=== PATIENT | male | born 1990 | race African-American/Black ===

== ENCOUNTER 2025-06-15 18:56 | Inpatient (IN) | payer OTHER, SELFPAY ==
--- NOTE | ~2025-06-15 | XR_ITS ---
EXAMINATION: XR HAND, LEFT CLINICAL INFORMATION: left wrist trauma/pain COMPARISON: None available. TECHNIQUE: PA, lateral, and oblique views of the left hand. FINDINGS: No fracture, dislocation, or suspicious bone lesion. Normal bone mineralization. Normal alignment. Joint spaces are preserved. No significant arthropathy. Soft tissues appear normal. XR/XR hand LT min 3V IMPRESSION: Normal left hand. Electronically signed by: Christopher Ceron MD 06/19/2025 02:12 PM EDT
[2025-06-15 19:25] VITALS: BP 120/80; PULSE 88; RESP 16; TEMP 36.4; O2SAT 99
--- NOTE | 2025-06-15 23:20 | PC.ADMIT ---
Addendum entered by More Fox RN 06/16/25 00:37: Correction: UTOX was positive for opiates, cocaine, fentanyl, and marijuana. Additionally, patient has a history of self harm and suicide attempts. He smokes 2 ppd, and vapes. Per [facility] paperwork, he is taking Suboxone 2-0.5 mg films. 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 His skin check was unremarkable. He has a history of anxiety, depression, and schizophrenia. He is allergic to tylenol. Per collateral, he has been off his psychiatric medications for around 5 months. He has become increasingly depressed, with passive SI per [facility], and he reports that he has been taking benzodiazepines and heroin to cope. While at [facility], he complained of AH of his father and grandmother's voices, stating it's going to be ok. He has no active SI at this time. His toxicology was positive for cocaine and fentanyl, but negative for benzodiazepines. He has been on suboxone in the past. He denied all psychiatric symptoms when assessed by this health underwriter; he is irritable due to fatigue. He retired to bed early this shift.
[2025-06-16 00:44] VITALS: BMI 25.1
--- NOTE | 2025-06-16 01:55 | PC.ADMIT ---
Addendum entered by More Fox RN 06/16/25 06:55: Patient has declined quitworks. 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 His skin check was reportedly remarkable for a burn on his left chest. Juan Manuel has a history of anxiety, depression, and schizophrenia. He has been off his medications for some months. He has had worsening depression as a result, and complained at [facility] that he was hearing his grandmother and father's voice stating It's going to be ok. He reports he has been taking benzodiazepines and heroin to cope; his UTOX was positive for cocaine, marijuana, opiates, and fentanyl. He is a two pack per day smoker, and vapes. The medical record from [facility] states that he has been on suboxone in the past. He has a history of suicide attempts and self harm, but there are no specifics as to method of attempt or self harm.
--- NOTE | 2025-06-16 09:23 | P.HPPS_ITS ---
HPI Date of Service: 06/16/25 Chief Complaint: Major depres, severe,recurrent, w/o psychotic feat Sources of Information: patient interviewed, chart reviewed and crisis/core team assessment reviewed HPI Subjective Notes: Strong Warning, Conditional Voluntary and 3 Day Narrative: Patient seen at 12:00 06/16 Patient is a 34-year-old male with history of MDD, anxiety, opiate and cocaine use disorder who presents for worsening depression, AH in the face of being off medications, relapse and triggering event which resulted him it not being allowed to talk to his children. Patient reports that he has been off his medications for about a year since he did not follow-up when they ran out. He has been depressed and anxious 4 months, however has remained sober on Sublocade. Sublocade ran out about 2 months ago at which time he relapsed and he regrets missing follow up. Patient reports that he has been abusing heroin and cocaine daily; denies any alcohol use. His depression has continually worsened saying he's not involved in anything, depressed, not wanting to do anything....I'm tired of 'everthing...tired of waking up...damn i got to do this whole day again... 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 Since then his depression has continued to worsen and his substance abuse increased. Patient started hearing helpful auditory hallucinations which remind him of his father and grandmother and say things to tried to lift [him]... And only occur when he is depressed. Patient would like to get back on antidepressant and remembers Wellbutrin being helpful; discussed risks/side effects. Wants to get back on Sublocade and agrees to start Suboxone now. Denies any history of manic type episodes Past Psychiatric History: Past psychiatric hospitalizations Past SI past med trials: Risperdal 2mg buproprion mirtazpine Medical Evaluation Reviewed: Hospitalist Santy Pending [facility] Medical History (Updated 06/16/25 @ 21:37 by CIELO Hobson) Cocaine use disorder Opioid use disorder MDD (major depressive disorder), recurrent, severe, with psychosis Family History: Deferred Social History: Has children but for some reason not allowed to see mom is support lives in apartment was working MANAGER APPOINTMENT but quite 2 weeks ago after being bullyied by client Substance History: Cocaine/opioid abuse Trauma History: Deny Diagnostics Vital Signs (24Hr): Vital Signs - 24 hr 06/15/25 19:25 Temperature 97.5 F Pulse Rate 88 Respiratory Rate 16 Blood Pressure 120/80 Pulse Oximetry 99 Oxygen Delivery Method Room Air BMI result Body Mass Index 25.1 Meds/Allergies Meds Home Medications ?Medication ?Instructions ?Recorded ?Confirmed ?Type buprenorphine 300 mg/1.5 mL mg subcut 06/15/25 Histor y solution,exten.rel.subcutaneous syringe (Sublocade) Allergies Allergies Allergy/AdvReac Type Severity Reaction Status Date / Time acetaminophen (From TYLENOL) Allergy Unknown HIVES Unverified 07/18/20 18:50 amoxicillin (AMOXICILLIN) Allergy Unknown HIVES Unverified 07/18/20 18:50 Mental Status Exam Mental Status Exam Narrative: Pt is alert and oriented; behavior is cooperative, quiet, isolative, calm; patient is not in distress; dressed in casual attire, disheveled; mood is described as depressed and affect congruent, downcast; eye contact avoidant; Speech is slow and soft; psychomotor retardation present; thought process is organized and goal directed; Thought content is on tx and psychosocial stressors; otherwise pertinent to relevant topics and without any delusional content, paranoid ideations or grandiosity; currently denies any SI/HI. Currently Denies AVH and there is no evidence of perceptual disturbance. Patients insight and judgment impaired Assessment & Plan Assessment & Plan (1) MDD (major depressive disorder), recurrent, severe, with psychosis: Status: Acute Code(s): F33.3 - Major depressive disorder, recurrent, severe with psychotic symptoms (2) Opioid use disorder: Status: Acute Code(s): F11.90 - Opioid use, unspecified, uncomplicated (3) Cocaine use disorder: Status: Acute Code(s): F14.10 - Cocaine abuse, uncomplicated Plan Patient is a 34-year-old male with history of MDD, anxiety, opiate and cocaine use disorder who presents for worsening depression, AH in the face of being off medications, relapse and triggering event which resulted him it not being allowed to talk to his children. Patient reports that he has been off his medications for about a year since he did not follow-up when they ran out. He has been depressed and anxious 4 months, however has remained sober on Sublocade. Sublocade ran out about 2 months ago at which time he relapsed and he regrets missing follow up. Patient reports that he has been abusing heroin and cocaine daily; denies any alcohol use. His depression has continually worsened saying he's not involved in anything, depressed, not wanting to do anything....I'm tired of 'everthing...tired of waking up...damn i got to do this whole day again... 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 Since then his depression has continued to worsen and his substance abuse increased. Patient started hearing helpful auditory hallucinations which remind him of his father and grandmother and say things to tried to lift [him]... And only occur when he is depressed. Patient would like to get back on antidepressant and remembers Wellbutrin being helpful; discussed risks/side effects. Wants to get back on Sublocade and agrees to start Suboxone now. Denies any history of manic type episodes Formulation/clinical reasoning: Patient has history of depression worsened by substance abuse; AH is mood congruent and encouraging and only present when depressed. Will diagnose with MDD; patient reports Wellbutrin helped in the past and wants to restart it now; reviewed risks/side effects. Will restart patient on Suboxone. Patient already has services at a clinic for Sublocade which he says he will go to on discharge. Plan: CV Q 15 minute checks Start on Suboxone 8/2 mg b.i.d. Start Wellbutrin XL 150 mg Patient educated on: diagnosis, medication risk/benefits and substance abuse Informed Consent: understands Reason for continued inpatient stay Substantial Risk for: rapid decompensation Statement Statement: I have reviewed the history and physical and performed a pertinent examination on my patient. No changes have occurred unless specified. If the History and Physical was not performed prior to admission, the Hospitalist's service will be consulted for completing the admission physical. Time Spent With Patient Time: Total time managing care of this patient today ____ minutes.
--- NOTE | 2025-06-16 17:55 | P.CONHOSP_ITS ---
History of Present Illness Data of Consult Service Date: 06/16/25 Primary Care Provider: None Physician HPI Reason for consult: Admission H&P Pt is a 34-year-old male with a PMH significant for?anxiety, depression, and schizophrenia who is admitted to [facility] psychiatry unit for increased depression and SI without plan. Reports auditory hallucinations of hearing his dad and grandmother. Has been taking both benzos and heroin in order to numb his pain. Medical consult for admission H&P. ?Pt denies any chronic medical conditions. Does complain of numbness and being unable to move his left hand after sleeping on it for an unspecified amount of time. Pt reports one week ago blacked out after taking a lot of benzos and woke up on the ground with his left hand awkwardly under him. Has been unable to move his wrist since then. Denies any pain or swelling. States this was not imaged at [facility] ED. Pt otherwise has no acute medical complaints. No N/V/D or abd pain. Denies CP or pressure. No SOB or VÁSQUEZ. No cough. Review of Systems Review of Systems: Yes all other systems are reviewed and are negative [facility] Medical History (Updated 06/16/25 @ 21:37 by CIELO Hobson) Cocaine use disorder Opioid use disorder MDD (major depressive disorder), recurrent, severe, with psychosis Social History Household Members: Unknown / Unable to assess Housing: Apartment Do you presently have visiting nurse or other home services: No Patient Tobacco Use Status: Current everyday Tobacco user Tobacco use type: Cigarette Smoked in Last 30 Days: Yes e-Cigarette/Vaping Use: Currently Using Frequency of e-Cigarette/Vaping Use: Daily Patient Interested in Nicotine Replacement: Yes Patient Given Instructions on How to Stop Smoking: No Currently Displaying Signs/Symptoms of Drug Intoxication Withdrawal: No Advance Directives: No Advance Directives Information Provided: Yes Advance Directives on File: No Do you have thoughts of harming others: None Do you have a plan to hurt others: No Plan Recently lost weight without trying: Unsure Nutrition Risks: No Nutritional Risk Poor oral hygiene: No Meds Allergies Allergy/AdvReac Type Severity Reaction Status Date / Time acetaminophen (From TYLENOL) Allergy Unknown HIVES Unverified 07/18/20 18:50 amoxicillin (AMOXICILLIN) Allergy Unknown HIVES Unverified 07/18/20 18:50 Active Medications: Current Medications Al Hydroxide/Mg Hydroxide (Magnesium Hydrox/Alum Hydrox 30 Ml Oral.Susp) 30 ml PO Q6H PRN PRN Reason: Heartburn/Nausea Buprenorphine/Naloxone (Buprenorphine/Naloxone 8/2 Mg Film) 1 film SUBLINGUAL BID [facility]Z Bupropion HCl (Bupropion Hcl Xl 150 Mg Tab.Er.24h) 150 mg PO DAILY LIZ Clonidine HCl (Clonidine Hcl 0.1 Mg Tablet) 0.1 mg PO Q4H PRN; Protocol PRN Reason: moderate anxiety Hydroxyzine HCl (Hydroxyzine Hcl 25 Mg Tablet) 25 mg PO Q6H PRN PRN Reason: mild anxiety Magnesium Hydroxide (Milk Of Magnesia 30 Ml Oral.Susp) 30 ml PO DAILY PRN PRN Reason: Constipation Nicotine (Nicotine 21 Mg Patch.Td24) 21 mg TRANSDERMA DAILY PRN PRN Reason: nicotine craving Nicotine Polacrilex (Nicotine Polacrilex 2 Mg Gum) 2 mg BUCCAL Q2H PRN PRN Reason: Nicotine Cravings Olanzapine (Olanzapine 5 Mg Tablet) 5 mg PO BID PRN PRN Reason: agitation Trazodone HCl (Trazodone Hcl 50 Mg Tablet) 50 mg PO BEDTIME MRX1 PRN PRN Reason: Insomnia Home Medications ?Medication ?Instructions ?Recorded ?Confirmed ?Last Taken ?Type buprenorphine 300 mg/1.5 mL mg subcut 06/15/25 Unknow n History solution,exten.rel.subcutaneous syringe (Sublocade) Physical Exam Vital Signs and Narrative: Vital Signs: Last Vital Signs Temp 97.5 F 06/15/25 19:25 Pulse 88 06/15/25 19:25 Resp 16 06/15/25 19:25 BP 120/80 06/15/25 19:25 Pulse Ox 99 06/15/25 19:25 O2 Del Method Room Air 06/15/25 19:25 BMI result Body Mass Index 25.1 General: AOx3, no acute distress Resp: CTA bilaterally CVS: S1, S2, RRR GI: +BS, NT, no distention Skin: Warm, dry Neuro: Cranial nerves II-XII grossly intact bilaterally. Motor grossly intact bilaterally Extremities: No edema. No active ROM of left wrist. Positive for wrist drop. No swelling or tenderness. Preserved passive ROM. Preserved sensation to light touch of upper extremities bilaterally. Psych: Flat affect Assessment and Plan (1) Medical clearance for psychiatric admission: Status: Acute Plan Pt is a 34-year-old male with a PMH significant for?anxiety, depression, and schizophrenia who is admitted to [facility] psychiatry unit for increased depression and SI without plan. Reports auditory hallucinations of hearing his dad and grandmother. Has been taking both benzos and heroin in order to numb his pain. Medical consult for admission H&P. Mood disorder Plan as per psychiatry Left wrist paralysis & numbness ?Radial nerve palsy Unable to move wrist x1 week after laying on it for an unspecified amount of time after benzo overdose No pain, no active ROM; passive ROM preserved; preserved sensation to light touch Will check left wrist x-ray; neurology consult if negative Pt otherwise has no acute medical complaints or chronic medical conditions. Will follow results of xray and contact ortho or neurology pending results. Otherwise will sign off. Thank you for allowing us to participate in the care of this pt.
[2025-06-16 20:00] VITALS: BP 111/65; PULSE 56; RESP 16; TEMP 36.8; O2SAT 96
[2025-06-17 08:00] VITALS: RESP 16
[2025-06-17] MEDS: buPROPion HCl XL 150 MG TAB.ER.24H PO (08:33)
--- NOTE | 2025-06-17 09:52 | P.PNPSI_ITS ---
Subjective Subjective Date of Service: 06/17/25 Reason For Visit: Major depres, severe,recurrent, w/o psychotic feat Interim History: met with pt; discussed with team remains very depressed, sullen, keeping to self; denies AVH; denies SI; says Suboxone helping. Agrees to increase Wellbutrin Mental Status Exam Mental Status Exam Narrative: Pt is alert and oriented; behavior is cooperative, quiet, isolative, calm; patient is not in distress; dressed in casual attire, disheveled; mood is described as depressed and affect congruent, downcast; eye contact avoidant; Speech is slow and soft; psychomotor retardation present; thought process is organized and goal directed; Thought content is on tx and psychosocial stressors; otherwise pertinent to relevant topics and without any delusional content, paranoid ideations or grandiosity; currently denies any SI/HI. Currently Denies AVH and there is no evidence of perceptual disturbance. Patients insight and judgment impaired Diagnostics Vital Signs (24Hr): Vital Signs - 24 hr 06/16/25 20:00 Temperature 98.2 F Pulse Rate 56 Respiratory Rate 16 Blood Pressure 111/65 Pulse Oximetry 96 Oxygen Delivery Method Room Air BMI result Body Mass Index 25.1 Medications Medications Current Medications Al Hydroxide/Mg Hydroxide (Magnesium Hydrox/Alum Hydrox 30 Ml Oral.Susp) 30 ml PO Q6H PRN PRN Reason: Heartburn/Nausea Buprenorphine/Naloxone (Buprenorphine/Naloxone 8/2 Mg Film) 1 film SUBLINGUAL BID [facility] Last Admin: 06/17/25 08:33 Dose: 1 film Bupropion HCl (Bupropion Hcl Xl 150 Mg Tab.Er.24h) 150 mg PO DAILY [facility] Last Admin: 06/17/25 08:33 Dose: 150 mg Clonidine HCl (Clonidine Hcl 0.1 Mg Tablet) 0.1 mg PO Q4H PRN; Protocol PRN Reason: moderate anxiety Hydroxyzine HCl (Hydroxyzine Hcl 25 Mg Tablet) 25 mg PO Q6H PRN PRN Reason: mild anxiety Magnesium Hydroxide (Milk Of Magnesia 30 Ml Oral.Susp) 30 ml PO DAILY PRN PRN Reason: Constipation Nicotine (Nicotine 21 Mg Patch.Td24) 21 mg TRANSDERMA DAILY PRN PRN Reason: nicotine craving Nicotine Polacrilex (Nicotine Polacrilex 2 Mg Gum) 2 mg BUCCAL Q2H PRN PRN Reason: Nicotine Cravings Olanzapine (Olanzapine 5 Mg Tablet) 5 mg PO BID PRN PRN Reason: agitation Trazodone HCl (Trazodone Hcl 50 Mg Tablet) 50 mg PO BEDTIME MRX1 PRN PRN Reason: Insomnia Allergies Allergies Allergy/AdvReac Type Severity Reaction Status Date / Time acetaminophen (From TYLENOL) Allergy Unknown HIVES Unverified 07/18/20 18:50 amoxicillin (AMOXICILLIN) Allergy Unknown HIVES Unverified 07/18/20 18:50 Assessment & Plan Assessment & Plan (1) MDD (major depressive disorder), recurrent, severe, with psychosis: Status: Acute Code(s): F33.3 - Major depressive disorder, recurrent, severe with psychotic symptoms (2) Opioid use disorder: Status: Acute Code(s): F11.90 - Opioid use, unspecified, uncomplicated (3) Cocaine use disorder: Status: Acute Code(s): F14.10 - Cocaine abuse, uncomplicated Plan Patient is a 34-year-old male with history of MDD, anxiety, opiate and cocaine use disorder who presents for worsening depression, AH in the face of being off medications, relapse and triggering event which resulted him it not being allowed to talk to his children. Patient reports that he has been off his medications for about a year since he did not follow-up when they ran out. He has been depressed and anxious 4 months, however has remained sober on Sublocade. Sublocade ran out about 2 months ago at which time he relapsed and he regrets missing follow up. Patient reports that he has been abusing heroin and cocaine daily; denies any alcohol use. His depression has continually worsened saying he's not involved in anything, depressed, not wanting to do an ything....I'm tired of 'everthing...tired of waking up...damn i got to do this whole day again... 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 Since then his depression has continued to worsen and his substance abuse increased. Patient started hearing helpful auditory hallucinations which remind him of his father and grandmother and say things to tried to lift [him]... And only occur when he is depressed. Patient would like to get back on antidepressant and remembers Wellbutrin being helpful; discussed risks/side effects. Wants to get back on Sublocade and agrees to start Suboxone now. Denies any history of manic type episodes Formulation/clinical reasoning: Patient has history of depression worsened by substance abuse; AH is mood congruent and encouraging and only present when depressed. Will diagnose with MDD; patient reports Wellbutrin helped in the past and wants to restart it now; reviewed risks/side effects. Will restart patient on Suboxone. Patient already has services at a clinic for Sublocade which he says he will go to on discharge. Hospital course: 06/17 remains very depressed, sullen, keeping to self; denies AVH; denies SI; says Suboxone helping. Agrees to increase Wellbutrin -refused left hand Xray Plan: CV Q 15 minute checks Continue Suboxone 8/2 mg b.i.d. Increase to Wellbutrin XL 300 mg Patient educated on: diagnosis, medication risk/benefits, substance abuse and medical condition Informed Consent: understands Reason for continued inpatient stay Substantial Risk for: rapid decompensation Time Spent With Patient Time: Total time managing care of this patient today ____ minutes.
[2025-06-17 20:00] VITALS: RESP 16
[2025-06-18] MEDS: buPROPion HCl XL 300 MG TAB.ER.24H PO (08:27)
[2025-06-18 12:24] VITALS: BP 118/77
--- NOTE | 2025-06-18 14:25 | HO.PSYCHPN ---
Subjective Subjective Date of Service: 06/18/25 Reason For Visit: Major depres, severe,recurrent, w/o psychotic feat Interim History: Met with Patient; discussed with team Patient reports continued depression. Patient talked more about his history of depression said it has been most of his life and that he is typically tired all day long due to her. He does not think Suboxone in the morning has anything to do with it. He says he has tried many medications but does not really remember the names. Patient denies any SI. Discussed medication options and patient agrees to increase Wellbutrin to see if this could be effective; also patient has continued insomnia and agrees to try mirtazapine; versus side effects reviewed. Mental Status Exam Mental Status Exam Narrative: Pt is alert and oriented; behavior is cooperative on approach, quiet, isolative, calm; patient is not in distress; dressed in casual attire, disheveled; mood is described as depressed and affect congruent, downcast; eye contact avoidant; Speech is slow and soft; psychomotor retardation present; thought process is organized and goal directed; Thought content is on tx and psychosocial stressors; otherwise pertinent to relevant topics and without any delusional content, paranoid ideations or grandiosity; currently denies any SI/HI. Currently Denies AVH and there is no evidence of perceptual disturbance. Patients insight and judgment impaired Diagnostics Vital Signs (24Hr): Vital Signs - 24 hr 06/17/25 20:00 06/18/25 12:24 Respiratory Rate 16 Blood Pressure 118/77 BMI result Body Mass Index 25.1 Medications Medications Current Medications Al Hydroxide/Mg Hydroxide (Magnesium Hydrox/Alum Hydrox 30 Ml Oral.Susp) 30 ml PO Q6H PRN PRN Reason: Heartburn/Nausea Buprenorphine/Naloxone (Buprenorphine/Naloxone 8/2 Mg Film) 1 film SUBLINGUAL BID [facility] Last Admin: 06/18/25 08:28 Dose: 1 film Bupropion HCl (Bupropion Hcl Xl 150 Mg Tab.Er.24h) 450 mg PO DAILY [facility] Clonidine HCl (Clonidine Hcl 0.1 Mg Tablet) 0.1 mg PO Q4H PRN; Protocol PRN Reason: moderate anxiety Hydroxyzine HCl (Hydroxyzine Hcl 25 Mg Tablet) 25 mg PO Q6H PRN PRN Reason: mild anxiety Magnesium Hydroxide (Milk Of Magnesia 30 Ml Oral.Susp) 30 ml PO DAILY PRN PRN Reason: Constipation Mirtazapine (Mirtazapine 7.5 Mg Tablet) 7.5 mg PO BEDTIME [facility] Nicotine (Nicotine 21 Mg Patch.Td24) 21 mg TRANSDERMA DAILY PRN PRN Reason: nicotine craving Nicotine Polacrilex (Nicotine Polacrilex 2 Mg Gum) 2 mg BUCCAL Q2H PRN PRN Reason: Nicotine Cravings Olanzapine (Olanzapine 5 Mg Tablet) 5 mg PO BID PRN PRN Reason: agitation Allergies Allergies Allergy/AdvReac Type Severity Reaction Status Date / Time acetaminophen (From TYLENOL) Allergy Unknown HIVES Unverified 07/18/20 18:50 amoxicillin (AMOXICILLIN) Allergy Unknown HIVES Unverified 07/18/20 18:50 Assessment & Plan Assessment & Plan (1) MDD (major depressive disorder), recurrent, severe, with psychosis: Status: Acute Code(s): F33.3 - Major depressive disorder, recurrent, severe with psychotic symptoms (2) Opioid use disorder: Status: Acute Code(s): F11.90 - Opioid use, unspecified, uncomplicated (3) Cocaine use disorder: Status: Acute Code(s): F14.10 - Cocaine abuse, uncomplicated Plan Patient is a 34-year-old male with history of MDD, anxiety, opiate and cocaine use disorder who presents for worsening depression, AH in the face of being off medications, relapse and triggering event which resulted him it not being allowed to talk to his children. Patient reports that he has been off his medications for about a year since he did not follow-up when they ran out. He has been depressed and anxious 4 months, however has remained sober on Sublocade. Sublocade ran out about 2 months ago at which time he relapsed and he regrets missing follow up. Patient reports that he has been abusing heroin and cocaine daily; denies any alcohol use. His depression has continually worsened saying he's not involved in anything, depressed, not wanting to do anything....I'm tired of 'everthing...tired of waking up...damn i got to do this whole day again... 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 Since then his depression has continued to worsen and his substance abuse increased. Patient started hearing helpful auditory hallucinations which remind him of his father and grandmother and say things to tried to lift [him]... And only occur when he is depressed. Patient would like to get back on antidepressant and remembers Wellbutrin being helpful; discussed risks/side effects. Wants to get back on Sublocade and agrees to start Suboxone now. Denies any history of manic type episodes Formulation/clinical reasoning: Patient has history of depression worsened by substance abuse; AH is mood congruent and encouraging and only present when depressed. Will diagnose with MDD; patient reports Wellbutrin helped in the past and wants to restart it now; reviewed risks/side effects. Will restart patient on Suboxone. Patient already has services at a clinic for Sublocade which he says he will go to on discharge. Hospital course: 06/17 remains very depressed, sullen, keeping to self; denies AVH; denies SI; says Suboxone helping. Agrees to increase Wellbutrin -refused left hand Xray 06/18 Patient reports continued depression. Patient talked more about his history of depression said it has been most of his life and that he is typically tired all day long due to her. He does not think Suboxone in the morning has anything to do with it. He says he has tried many medications but does not really remember the names. Patient denies any SI. Discussed medication options and patient agrees to increase Wellbutrin to see if this could be effective; also patient has continued insomnia and agrees to try mirtazapine; versus side effects reviewed -also discussed behavioral activation and patient agrees to work hard to stay out of bed during the day, attend groups Plan: CV Q 15 minute checks Continue Suboxone 8/2 mg b.i.d. Increase to Wellbutrin XL 450 mg Patient educated on: diagnosis and medication risk/benefits Informed Consent: understands Reason for continued inpatient stay Substantial Risk for: rapid decompensation Time Spent With Patient Time: Total time managing care of this patient today ____ minutes.
[2025-06-18 20:05] VITALS: BP 106/64; PULSE 76; RESP 18; TEMP 37.1; O2SAT 97
[2025-06-19 08:00] VITALS: BP 120/69; PULSE 83; RESP 16; TEMP 36.9; O2SAT 98
[2025-06-19] MEDS: buPROPion HCl XL 150 MG TAB.ER.24H 450 MG PO (08:48)
--- NOTE | 2025-06-19 09:55 | HO.PSYCHPN ---
Subjective Subjective Date of Service: 06/19/25 Reason For Visit: Major depres, severe,recurrent, w/o psychotic feat Interim History: met with patient; discussed with team Patient out of the room and in the milieu; even went to group. Patient says that he is feeling better with noticeably brighter affect. He said he also slept last night which is very uncommon forearm. Patient feels that medications are helpful and wants to continue on current regimen. Agrees that improved mood remains fragile as this is the 1st day in years that he has had relief from depression and so will monitor for now and continue with medication management as needed Mental Status Exam Mental Status Exam Narrative: Pt is alert and oriented; behavior is cooperative, friendly and calm, out of the room; patient is not in distress; dressed in casual attire, unkempt; mood is described as better and affect congruent, noticeably brighter; eye contact appropriate; Speech is normal rate, volume and prosody and not pressured; no psychomotor agitation/retardation present; thought process is organized and goal directed; Thought content is on tx; otherwise pertinent to relevant topics and without any delusional content, paranoid ideations or grandiosity; denies any SI/HI. Denies AVH and there is no evidence of perceptual disturbance. Patients insight and judgment appear intact. Diagnostics Vital Signs (24Hr): Vital Signs - 24 hr 06/18/25 12:24 06/18/25 20:05 Temperature 98.7 F Pulse Rate 76 Respiratory Rate 18 Blood Pressure 118/77 106/64 Pulse Oximetry 97 Oxygen Delivery Method Room Air BMI result Body Mass Index 25.1 Medications Medications Current Medications Al Hydroxide/Mg Hydroxide (Magnesium Hydrox/Alum Hydrox 30 Ml Oral.Susp) 30 ml PO Q6H PRN PRN Reason: Heartburn/Nausea Buprenorphine/Naloxone (Buprenorphine/Naloxone 8/2 Mg Film) 1 film SUBLINGUAL BID [facility] Last Admin: 06/19/25 08:48 Dose: 1 film Bupropion HCl (Bupropion Hcl Xl 150 Mg Tab.Er.24h) 450 mg PO DAILY [facility] Last Admin: 06/19/25 08:48 Dose: 450 mg Clonidine HCl (Clonidine Hcl 0.1 Mg Tablet) 0.1 mg PO Q4H PRN; Protocol PRN Reason: moderate anxiety Hydroxyzine HCl (Hydroxyzine Hcl 25 Mg Tablet) 25 mg PO Q6H PRN PRN Reason: mild anxiety Magnesium Hydroxide (Milk Of Magnesia 30 Ml Oral.Susp) 30 ml PO DAILY PRN PRN Reason: Constipation Mirtazapine (Mirtazapine 7.5 Mg Tablet) 7.5 mg PO BEDTIME [facility] Last Admin: 06/18/25 20:45 Dose: 7.5 mg Nicotine (Nicotine 21 Mg Patch.Td24) 21 mg TRANSDERMA DAILY PRN PRN Reason: nicotine craving Nicotine Polacrilex (Nicotine Polacrilex 2 Mg Gum) 2 mg BUCCAL Q2H PRN PRN Reason: Nicotine Cravings Olanzapine (Olanzapine 5 Mg Tablet) 5 mg PO BID PRN PRN Reason: agitation Allergies Allergies Allergy/AdvReac Type Severity Reaction Status Date / Time acetaminophen (From TYLENOL) Allergy Unknown HIVES Verified 06/18/25 19:53 amoxicillin (AMOXICILLIN) Allergy Unknown HIVES Verified 06/18/25 19:53 Assessment & Plan Assessment & Plan (1) MDD (major depressive disorder), recurrent, severe, with psychosis: Status: Acute Code(s): F33.3 - Major depressive disorder, recurrent, severe with psychotic symptoms (2) Opioid use disorder: Status: Acute Code(s): F11.90 - Opioid use, unspecified, uncomplicated (3) Cocaine use disorder: Status: Acute Code(s): F14.10 - Cocaine abuse, uncomplicated Plan Patient is a 34-year-old male with history of MDD, anxiety, opiate and cocaine use disorder who presents for worsening depression, AH in the face of being off medications, relapse and triggering event which resulted him it not being allowed to talk to his children. Patient reports that he has been off his medications for about a year since he did not follow-up when they ran out. He has been depressed and anxious 4 months, however has remained sober on Sublocade. Sublocade ran out about 2 months ago at which time he relapsed and he regrets missing follow up. Patient reports that he has been abusing heroin and cocaine daily; denies any alcohol use. His depression has continually worsened saying he's not involved in anything, depressed, not wanting to do anything....I'm tired of 'everthing...tired of waking up...damn i got to do this whole day again... 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 Since then his depression has continued to worsen and his substance abuse increased. Patient started hearing helpful auditory hallucinations which remind him of his father and grandmother and say things to tried to lift [him]... And only occur when he is depressed. Patient would like to get back on antidepressant and remembers Wellbutrin being helpful; discussed risks/side effects. Wants to get back on Sublocade and agrees to start Suboxone now. Denies any history of manic type episodes Formulation/clinical reasoning: Patient has history of depression worsened by substance abuse; AH is mood congruent and encouraging and only present when depressed. Will diagnose with MDD; patient reports Wellbutrin helped in the past and wants to restart it now; reviewed risks/side effects. Will restart patient on Suboxone. Patient already has services at a clinic for Sublocade which he says he will go to on discharge. Hospital course: 06/17 remains very depressed, sullen, keeping to self; denies AVH; denies SI; says Suboxone helping. Agrees to increase Wellbutrin -refused left hand Xray 06/18 Patient reports continued depression. Patient talked more about his history of depression said it has been most of his life and that he is typically tired all day long due to her. He does not think Suboxone in the morning has anything to do with it. He says he has tried many medications but does not really remember the names. Patient denies any SI. Discussed medication options and patient agrees to increase Wellbutrin to see if this could be effective; also patient has continued insomnia and agrees to try mirtazapine; versus side effects reviewed -also discussed behavioral activation and patient agrees to work hard to stay out of bed during the day, attend groups 06/19 Patient out of the room and in the milieu; even went to group. Patient says that he is feeling better with noticeably brighter affect. He said he also slept last night which is very uncommon forearm. Patient feels that medications are helpful and wants to continue on current regimen. Agrees that improved mood remains fragile as this is the 1st day in years that he has had relief from depression and so will monitor for now and continue with medication management as needed Plan: CV Q 15 minute checks Continue Suboxone 8/2 mg b.i.d. Continue Wellbutrin XL 450 mg Continue mirtazapine 7.5 q.h.s. Patient educated on: diagnosis and medication risk/benefits Informed Consent: understands Reason for continued inpatient stay Substantial Risk for: rapid decompensation Time Spent With Patient Time: Total time managing care of this patient today ____ minutes.
[2025-06-19 20:00] VITALS: BP 119/71; PULSE 80; RESP 16; TEMP 37.2; O2SAT 99
[2025-06-19 20:07] VITALS: BP 119/71
[2025-06-20 07:58] VITALS: BP 113/57; PULSE 69; TEMP 36.8; O2SAT 100
[2025-06-20] MEDS: buPROPion HCl XL 150 MG TAB.ER.24H 450 MG PO (08:31)
--- NOTE | 2025-06-20 09:00 | P.PNPSI_ITS ---
Subjective Subjective Date of Service: 07/04/25 Reason For Visit: Major depres, severe,recurrent, w/o psychotic feat Interim History: Met with patient; discussed with team Patient again lying in bed. Says he is feeling quite down again and depressed. Says this often happens that he will feel good for 1 day and then depressed again. Patient agrees however to continue to push himself to get out of bed, go to groups in order to truly assess whether not medications are working and it is just external triggers that are causing return of depressed mood. Mental Status Exam Mental Status Exam Narrative: Pt is alert and oriented; behavior is cooperative on approach, quiet, isolative, calm; patient is not in distress; dressed in casual attire, disheveled; mood is described as depressed and affect congruent, downcast; eye contact avoidant; Speech is slow and soft; psychomotor retardation present; thought process is organized and goal directed; Thought content is on tx and psychosocial stressors; otherwise pertinent to relevant topics and without any delusional content, paranoid ideations or grandiosity; currently denies any SI/HI. Currently Denies AVH and there is no evidence of perceptual disturbance. Patients insight and judgment impaired Diagnostics Vital Signs (24Hr): Vital Signs - 24 hr 06/19/25 20:00 06/19/25 20:07 06/20/25 07:58 Temperature 98.9 F 98.2 F Pulse Rate 80 69 Respiratory Rate 16 Blood Pressure 119/71 119/71 113/57 L Pulse Oximetry 99 100 Oxygen Delivery Method Room Air Room Air BMI result Body Mass Index 25.1 Imaging Radiology Impressions: ITS Impressions Hand X-Ray 06/19/25 13:51 IMPRESSION: Normal left hand. Electronically signed by: Christopher Ceron MD 06/19/2025 02:12 PM EDT Medications Medications Current Medications Al Hydroxide/Mg Hydroxide (Magnesium Hydrox/Alum Hydrox 30 Ml Oral.Susp) 30 ml PO Q6H PRN PRN Reason: Heartburn/Nausea Buprenorphine/Naloxone (Buprenorphine/Naloxone 8/2 Mg Film) 1 film SUBLINGUAL BID [facility] Last Admin: 06/20/25 08:33 Dose: 1 film Bupropion HCl (Bupropion Hcl Xl 150 Mg Tab.Er.24h) 450 mg PO DAILY [facility] Last Admin: 06/20/25 08:31 Dose: 450 mg Clonidine HCl (Clonidine Hcl 0.1 Mg Tablet) 0.1 mg PO Q4H PRN; Protocol PRN Reason: moderate anxiety Last Admin: 06/19/25 20:07 Dose: 0.1 mg Hydroxyzine HCl (Hydroxyzine Hcl 25 Mg Tablet) 25 mg PO Q6H PRN PRN Reason: mild anxiety Magnesium Hydroxide (Milk Of Magnesia 30 Ml Oral.Susp) 30 ml PO DAILY PRN PRN Reason: Constipation Mirtazapine (Mirtazapine 7.5 Mg Tablet) 7.5 mg PO BEDTIME [facility] Last Admin: 06/19/25 20:07 Dose: 7.5 mg Nicotine (Nicotine 21 Mg Patch.Td24) 21 mg TRANSDERMA DAILY PRN PRN Reason: nicotine craving Nicotine Polacrilex (Nicotine Polacrilex 2 Mg Gum) 2 mg BUCCAL Q2H PRN PRN Reason: Nicotine Cravings Olanzapine (Olanzapine 5 Mg Tablet) 5 mg PO BID PRN PRN Reason: agitation Allergies Allergies Allergy/AdvReac Type Severity Reaction Status Date / Time acetaminophen (From TYLENOL) Allergy Unknown HIVES Verified 06/18/25 19:53 amoxicillin (AMOXICILLIN) Allergy Unknown HIVES Verified 06/18/25 19:53 Assessment & Plan Assessment & Plan (1) MDD (major depressive disorder), recurrent, severe, with psychosis: Status: Acute Code(s): F33.3 - Major depressive disorder, recurrent, severe with psychotic symptoms (2) Opioid use disorder: Status: Acute Code(s): F11.90 - Opioid use, unspecified, uncomplicated (3) Cocaine use disorder: Status: Acute Code(s): F14.10 - Cocaine abuse, uncomplicated Plan Patient is a 34-year-old male with history of MDD, anxiety, opiate and cocaine use disorder who presents for worsening depression, AH in the face of being off medications, relapse and triggering event which resulted him it not being allowed to talk to his children. Patient reports that he has been off his medications for about a year since he did not follow-up when they ran out. He has been depressed and anxious 4 months, however has remained sober on Sublocade. Sublocade ran out about 2 months ago at which time he relapsed and he regrets missing follow up. Patient reports that he has been abusing heroin and cocaine daily; denies any alcohol use. His depression has continually worsened saying he's not involved in anything, depressed, not wanting to do anything....I'm tired of 'everthing...tired of waking up...damn i got to do this whole day again... 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 Since then his depression has continued to worsen and his substance abuse increased. Patient started hearing helpful auditory hallucinations which remind him of his father and grandmother and say things to tried to lift [him]... And only occur when he is depressed. Patient would like to get back on antidepressant and remembers Wellbutrin being helpful; discussed risks/side effects. Wants to get back on Sublocade and agrees to start Suboxone now. Denies any history of manic type episodes Formulation/clinical reasoning: Patient has history of depression worsened by substance abuse; AH is mood congruent and encouraging and only present when depressed. Will diagnose with MDD; patient reports Wellbutrin helped in the past and wants to restart it now; reviewed risks/side effects. Will restart patient on Suboxone. Patient already has services at a clinic for Sublocade which he says he will go to on discharge. Hospital course: 06/17 remains very depressed, sullen, keeping to self; denies AVH; denies SI; says Suboxone helping. Agrees to increase Wellbutrin -refused left hand Xray 06/18 Patient reports continued depression. Patient talked more about his history of depression said it has been most of his life and that he is typically tired all day long due to her. He does not think Suboxone in the morning has a nything to do with it. He says he has tried many medications but does not really remember the names. Patient denies any SI. Discussed medication options and patient agrees to increase Wellbutrin to see if this could be effective; also patient has continued insomnia and agrees to try mirtazapine; versus side effects reviewed -also discussed behavioral activation and patient agrees to work hard to stay out of bed during the day, attend groups 06/19 Patient out of the room and in the milieu; even went to group. Patient says that he is feeling better with noticeably brighter affect. He said he also slept last night which is very uncommon forearm. Patient feels that medications are helpful and wants to continue on current regimen. Agrees that improved mood remains fragile as this is the 1st day in years that he has had relief from depression and so will monitor for now and continue with medication management as needed 06/20 Patient again lying in bed. Says he is feeling quite down again and depressed. Says this often happens that he will feel good for 1 day and then depressed again. Patient agrees however to continue to push himself to get out of bed, go to groups in order to truly assess whether not medications are working and it is just external triggers that are causing return of depressed mood. Plan: CV Q 15 minute checks Continue Suboxone 8/2 mg b.i.d. Continue Wellbutrin XL 450 mg Continue mirtazapine 7.5 q.h.s. Patient educated on: diagnosis, medication risk/benefits and therapeutic strategies Informed Consent: understands Reason for continued inpatient stay Substantial Risk for: rapid decompensation Time Spent With Patient Time: Total time managing care of this patient today ____ minutes.
[2025-06-21 07:00] VITALS: BMI 22.4
[2025-06-21 08:00] VITALS: BP 111/57; PULSE 71; RESP 18; TEMP 36.6; O2SAT 99
[2025-06-21] MEDS: buPROPion HCl XL 150 MG TAB.ER.24H 450 MG PO (08:32)
--- NOTE | 2025-06-21 09:52 | P.PNPSI_ITS ---
Subjective Subjective Date of Service: 06/21/25 Reason For Visit: Major depres, severe,recurrent, w/o psychotic feat Interim History: Met with patient; discussed with team Patient reports that overall he is starting to feel little better...he thinks. He feels it is a little too early to tell but agrees that behavioral activation and going to groups is helpful and says that is overall easier to engage with people. However given continued depression he agrees to increase mirtazapine to 15 mg. Discussed that patient has a history of ADHD symptoms; discussed Intuniv, risks/side effects and he agrees to take it daily. If he finds it sedating, he will have it switch to bedtime increased mirtazapine 15mg intuniv 1mg daily maybe at bed Mental Status Exam Mental Status Exam Narrative: Pt is alert and oriented; behavior is cooperative, friendly and calm, out of the room; patient is not in distress; dressed in casual attire, unkempt; mood is described as better and affect congruent, noticeably brighter; eye contact appropriate; Speech is normal rate, volume and prosody and not pressured; no psychomotor agitation/retardation present; thought process is organized and goal directed; Thought content is on tx; otherwise pertinent to relevant topics and without any delusional content, paranoid ideations or grandiosity; denies any SI/HI. Denies AVH and there is no evidence of perceptual disturbance. Patients insight and judgment appear intact. Diagnostics Vital Signs (24Hr): Vital Signs - 24 hr 06/21/25 08:00 Temperature 97.8 F Pulse Rate 71 Respiratory Rate 18 Blood Pressure 111/57 L Pulse Oximetry 99 Oxygen Delivery Method Room Air BMI result Body Mass Index 25.1 Imaging Radiology Impressions: ITS Impressions Hand X-Ray 06/19/25 13:51 IMPRESSION: Normal left hand. Electronically signed by: Christopher Ceron MD 06/19/2025 02:12 PM EDT Medications Medications Current Medications Al Hydroxide/Mg Hydroxide (Magnesium Hydrox/Alum Hydrox 30 Ml Oral.Susp) 30 ml PO Q6H PRN PRN Reason: Heartburn/Nausea Buprenorphine/Naloxone (Buprenorphine/Naloxone 8/2 Mg Film) 1 film SUBLINGUAL BID [facility] Last Admin: 06/21/25 08:33 Dose: 1 film Bupropion HCl (Bupropion Hcl Xl 150 Mg Tab.Er.24h) 450 mg PO DAILY [facility] Last Admin: 06/21/25 08:32 Dose: 450 mg Clonidine HCl (Clonidine Hcl 0.1 Mg Tablet) 0.1 mg PO Q4H PRN; Protocol PRN Reason: moderate anxiety Last Admin: 06/19/25 20:07 Dose: 0.1 mg Hydroxyzine HCl (Hydroxyzine Hcl 25 Mg Tablet) 25 mg PO Q6H PRN PRN Reason: mild anxiety Magnesium Hydroxide (Milk Of Magnesia 30 Ml Oral.Susp) 30 ml PO DAILY PRN PRN Reason: Constipation Mirtazapine (Mirtazapine 7.5 Mg Tablet) 7.5 mg PO BEDTIME [facility] Last Admin: 06/20/25 21:08 Dose: 7.5 mg Nicotine (Nicotine 21 Mg Patch.Td24) 21 mg TRANSDERMA DAILY PRN PRN Reason: nicotine craving Nicotine Polacrilex (Nicotine Polacrilex 2 Mg Gum) 2 mg BUCCAL Q2H PRN PRN Reason: Nicotine Cravings Olanzapine (Olanzapine 5 Mg Tablet) 5 mg PO BID PRN PRN Reason: agitation Allergies Allergies Allergy/AdvReac Type Severity Reaction Status Date / Time acetaminophen (From TYLENOL) Allergy Unknown HIVES Verified 06/18/25 19:53 amoxicillin (AMOXICILLIN) Allergy Unknown HIVES Verified 06/18/25 19:53 Assessment & Plan Assessment & Plan (1) MDD (major depressive disorder), recurrent, severe, with psychosis: Status: Acute Code(s): F33.3 - Major depressive disorder, recurrent, severe with psychotic symptoms (2) Opioid use disorder: Status: Acute Code(s): F11.90 - Opioid use, unspecified, uncomplicated (3) Cocaine use disorder: Status: Acute Code(s): F14.10 - Cocaine abuse, uncomplicated Plan Patient is a 34-year-old male with history of MDD, anxiety, opiate and cocaine use disorder who presents for worsening depression, AH in the face of being off medications, relapse and triggering event which resulted him it not being allowed to talk to his children. Patient reports that he has been off his medications for about a year since he did not follow-up when they ran out. He has been depressed and anxious 4 months, however has remained sober on Sublocade. Sublocade ran out about 2 months ago at which time he relapsed and he regrets missing follow up. Patient reports that he has been abusing heroin and cocaine daily; denies any alcohol use. His depression has continually worsened saying he's not involved in anything, depressed, not wanting to do anything....I'm tired of 'everthing...tired of waking up...damn i got to do this whole day again... 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 Since then his depression has continued to worsen and his substance abuse increased. Patient started hearing helpful auditory hallucinations which remind him of his father and grandmother and say things to tried to lift [him]... And only occur when he is depressed. Patient would like to get back on antidepressant and remembers Wellbutrin being helpful; discussed risks/side effects. Wants to get back on Sublocade and agree s to start Suboxone now. Denies any history of manic type episodes Formulation/clinical reasoning: Patient has history of depression worsened by substance abuse; AH is mood congruent and encouraging and only present when depressed. Will diagnose with MDD; patient reports Wellbutrin helped in the past and wants to restart it now; reviewed risks/side effects. Will restart patient on Suboxone. Patient already has services at a clinic for Sublocade which he says he will go to on discharge. Hospital course: 06/17 remains very depressed, sullen, keeping to self; denies AVH; denies SI; says Suboxone helping. Agrees to increase Wellbutrin -refused left hand Xray 06/18 Patient reports continued depression. Patient talked more about his history of depression said it has been most of his life and that he is typically tired all day long due to her. He does not think Suboxone in the morning has anything to do with it. He says he has tried many medications but does not really remember the names. Patient denies any SI. Discussed medication options and patient agrees to increase Wellbutrin to see if this could be effective; also patient has continued insomnia and agrees to try mirtazapine; versus side effects reviewed -also discussed behavioral activation and patient agrees to work hard to stay out of bed during the day, attend groups 06/19 Patient out of the room and in the milieu; even went to group. Patient says that he is feeling better with noticeably brighter affect. He said he also slept last night which is very uncommon forearm. Patient feels that medications are helpful and wants to continue on current regimen. Agrees that improved mood remains fragile as this is the 1st day in years that he has had relief from depression and so will monitor for now and continue with medication management as needed 06/20 Patient again lying in bed. Says he is feeling quite down again and depressed. Says this often happens that he will feel good for 1 day and then depressed again. Patient agrees however to continue to push himself to get out of bed, go to groups in order to truly assess whether not medications are working and it is just external triggers that are causing return of depressed mood. 06/21 Patient reports that overall he is starting to feel little better...he thinks. He feels it is a little too early to tell but agrees that behavioral activation and going to groups is helpful and says that is overall easier to engage with people. However given continued depression he agrees to increase mirtazapine to 15 mg. Discussed that patient has a history of ADHD symptoms; discussed Intuniv, risks/side effects and he agrees to take it daily. If he finds it sedating, he will have it switch to bedtime -increased mirtazapine 15mg -intuniv 1mg daily maybe at bed Plan: CV Q 15 minute checks Continue Suboxone 8/2 mg b.i.d. Continue Wellbutrin XL 450 mg Increase mirtazapine 15q.h.s. -intuniv 1mg daily; moved to bedtime if too sedating Patient educated on: diagnosis, medication risk/benefits and therapeutic strategies Informed Consent: understands Reason for continued inpatient stay Substantial Risk for: rapid decompensation Time Spent With Patient Time: Total time managing care of this patient today ____ minutes.
[2025-06-21] MEDS: guanFACINE HCl ER 1 MG TAB.ER.24H PO (15:20)
[2025-06-21 20:00] VITALS: BP 111/60; PULSE 88; RESP 16; TEMP 36.4; O2SAT 99
[2025-06-21 20:34] VITALS: BP 111/60
[2025-06-22 08:00] VITALS: RESP 16
[2025-06-22] MEDS: guanFACINE HCl ER 1 MG TAB.ER.24H PO (08:27)
[2025-06-22] MEDS: buPROPion HCl XL 150 MG TAB.ER.24H 450 MG PO (08:27)
--- NOTE | 2025-06-22 15:08 | HO.PSYCHPN ---
Subjective Subjective Date of Service: 06/22/25 Reason For Visit: Major depres, severe,recurrent, w/o psychotic feat Subjective Notes: Conditional Voluntary Healthcare Proxy: No Guardianship: No Medical Problems Affecting Mental Status: No Interim History: Medical record and nursing notes reviewed; case discussed during rounds with team/nursing staff, and met with patient for supportive therapy/psychoeducation, as well as medication management. Patient slept through the night, was medication compliant, appear to be sedated during the daytime. grocery worker and this provider met with patient this morning in his room, and was back to bed after breakfast. Reports 5/10 for depression and anxiety. Discussed with the option of change medication scheduled time to bedtime to avoid daytime sedation. Patient do not want any medication changes, and reported that he has slept like this at home as well. Denies safety concerns, denies hallucinations. His plan today is attended to some groups. Also advised patient to change the bed sheet. Reports he not shower daily, denies bowel movement issues, appetite is good. grocery worker send referral out to [facility] program. However, with the depression and anxiety, and medication management/titration, patient would be benefit for over the weekends here and then reassess to see if he is ready for treatment program early next week. He is pleasant and cooperative upon approach. Also reports to pain/and tooth abscess. We will start on antibiotic for 5 days, and topical for pain. Review of Systems Review of Systems Tooth abscess. Tooth pain. Yes all other systems are reviewed and are negative Mental Status Exam Mental Status Exam Narrative: Pt is alert and oriented; behavior is cooperative, friendly and calm; patient is not in distress; dressed in casual attire, unkempt; soil clothing and bed sheet, mood is described as good and affect congruent, mild sedated after breakfast; eye contact is fair and appropriate; Speech is soft, normal rate, volume and prosody and not pressured; no psychomotor agitation/retardation present; thought process is organized and goal directed; Thought content is on tx; otherwise pertinent to relevant topics and without any delusional content, paranoid ideations or grandiosity; denies any SI/HI. Denies AVH and there is no evidence of perceptual disturbance. Patients insight and judgment appear intact. Diagnostics Vital Signs (24Hr): Vital Signs - 24 hr 06/21/25 20:00 06/21/25 20:34 06/22/25 08:00 Temperature 97.6 F Pulse Rate 88 Respiratory Rate 16 16 Blood Pressure 111/60 111/60 Pulse Oximetry 99 Oxygen Delivery Method Room Air BMI result Body Mass Index 22.4 Imaging Radiology Impressions: ITS Impressions Hand X-Ray 06/19/25 13:51 IMPRESSION: Normal left hand. Electronically signed by: Christopher Ceron MD 06/19/2025 02:12 PM EDT RP Medications Medications Current Medications Al Hydroxide/Mg Hydroxide (Magnesium Hydrox/Alum Hydrox 30 Ml Oral.Susp) 30 ml PO Q6H PRN PRN Reason: Heartburn/Nausea Benzocaine (Benzocaine 20 % Oral Gel 9 Gm Tube) 1 appl MUCOUS MEM QID PRN; Protocol PRN Reason: tooth pain Buprenorphine/Naloxone (Buprenorphine/Naloxone 8/2 Mg Film) 1 film SUBLINGUAL BID@0900,1999 [facility] Last Admin: 06/22/25 08:30 Dose: 1 film Bupropion HCl (Bupropion Hcl Xl 150 Mg Tab.Er.24h) 450 mg PO DAILY [facility] Last Admin: 06/22/25 08:27 Dose: 450 mg Clonidine HCl (Clonidine Hcl 0.1 Mg Tablet) 0.1 mg PO Q4H PRN; Protocol PRN Reason: moderate anxiety Last Admin: 06/21/25 20:34 Dose: 0.1 mg Doxycycline Monohydrate (Doxycycline Monohydrate 100 Mg Capsule) 100 mg PO Q12H [facility] Stop: 06/27/25 23:59 Guanfacine HCl (Guanfacine Hcl Er 1 Mg Tab.Er.24h) 1 mg PO DAILY [facility] Last Admin: 06/22/25 08:27 Dose: 1 mg Hydroxyzine HCl (Hydroxyzine Hcl 25 Mg Tablet) 25 mg PO Q6H PRN PRN Reason: mild anxiety Ibuprofen (Ibuprofen 600 Mg Tablet) 600 mg PO Q6H PRN PRN Reason: Pain, Mild (Pain Scale 1-3) Last Admin: 06/21/25 21:00 Dose: 600 mg Magnesium Hydroxide (Milk Of Magnesia 30 Ml Oral.Susp) 30 ml PO DAILY PRN PRN Reason: Constipation Mirtazapine (Mirtazapine 15 Mg Tablet) 15 mg PO BEDTIME [facility] Last Admin: 06/21/25 20:35 Dose: 15 mg Nicotine (Nicotine 21 Mg Patch.Td24) 21 mg TRANSDERMA DAILY PRN PRN Reason: nicotine craving Nicotine Polacrilex (Nicotine Polacrilex 2 Mg Gum) 2 mg BUCCAL Q2H PRN PRN Reason: Nicotine Cravings Olanzapine (Olanzapine 5 Mg Tablet) 5 mg PO BID PRN PRN Reason: agitation Allergies Allergies Allergy/AdvReac Type Severity Reaction Status Date / Time acetaminophen (From TYLENOL) Allergy Unknown HIVES Verified 06/18/25 19:53 amoxicillin (AMOXICILLIN) Allergy Unknown HIVES Verified 06/18/25 19:53 Assessment & Plan Assessment & Plan (1) MDD (major depressive disorder), recurrent, severe, with psychosis: Status: Acute Code(s): F33.3 - Major depressive disorder, recurrent, severe with psychotic symptoms (2) Opioid use disorder: Status: Acute Code(s): F11.90 - Opioid use, unspecified, uncomplicated (3) Cocaine use disorder: Status: Acute Code(s): F14.10 - Cocaine abuse, uncomplicated Plan Patient is a 34-year-old male with history of MDD, anxiety, opiate and cocaine use disorder who presents for worsening depression, AH in the face of being off medications, relapse and triggering event which resulted him it not being allowed to talk to his children. Patient reports that he has been off his medications for about a year since he did not follow-up when they ran out. He has been depressed and anxious 4 months, however has remained sober on Sublocade. Sublocade ran out about 2 months ago at which time he relapsed and he regrets missing follow up. Patient reports that he has been abusing heroin and cocaine daily; denies any alcohol use. His depression has continually worsened saying he's not involved in anything, depressed, not wanting to do anything....I'm tired of 'everthing...tired of waking up...damn i got to do this whole day again... 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 Since then his depression has continued to worsen and his substance abuse increased. Patient started hearing helpful auditory hallucinations which remind him of his father and grandmother and say things to tried to lift [him]... And only occur when he is depressed. Patient would like to get back on antidepressant and remembers Wellbutrin being helpful; discussed risks/side effects. Wants to get back on Sublocade and agrees to start Suboxone now. Denies any history of manic type episodes Formulation/clinical reasoning: Patient has history of depression worsened by substance abuse; AH is mood congruent and encouraging and only present when depressed. Will diagnose with MDD; patient reports Wellbutrin helped in the past and wants to restart it now; reviewed risks/side effects. Will restart patient on Suboxone. Patient already has services at a clinic for Sublocade which he says he will go to on discharge. Hospital course: 06/17 remains very depressed, sullen, keeping to self; denies AVH; denies SI; says Suboxone helping. Agrees to increase Wellbutrin -refused left hand Xray 06/18 Patient reports continued depression. Patient talked more about his history of depression said it has been most of his life and that he is typically tired all day long due to her. He does not think Suboxone in the morning has anything to do with it. He says he has tried many medications but does not really remember the names. Patient denies any SI. Discussed medication options and patient agrees to increase Wellbutrin to see if this could be effective; also patient has continued insomnia and agrees to try mirtazapine; versus side effects reviewed -also discussed behavioral activation and patient agrees to work hard to stay out of bed during the day, attend groups 06/19 Patient out of the room and in the milieu; even went to group. Patient says that he is feeling better with noticeably brighter affect. He said he also slept last night which is very uncommon forearm. Patient feels that medications are helpful and wants to continue on current regimen. Agrees that improved mood remains fragile as this is the 1st day in years that he has had relief from depression and so will monitor for now and continue with medication management as needed 06/20 Patient again lying in bed. Says he is feeling quite down again and depressed. Says this often happens that he will feel good for 1 day and then depressed again. Patient agrees however to continue to push himself to get out of bed, go to groups in order to truly assess whether not medications are working and it is just external triggers that are causing return of depressed mood. 06/21 Patient reports that overall he is starting to feel little better...he thinks. He feels it is a little too early to tell but agrees that behavioral activation and going to groups is helpful and says that is overall easier to engage with people. However given continued depression he agrees to increase mirtazapine to 15 mg. Discussed that patient has a history of ADHD symptoms; discussed Intuniv, risks/side effects and he agrees to take it daily. If he finds it sedating, he will have it switch to bedtime -increased mirtazapine 15mg -intuniv 1mg daily maybe at bed 06/22/25: Patient slept through the night, was medication compliant, appear to be sedated during daytime. grocery worker and this provider met with patient this morning in his room, and was back to bed after breakfast. Reports 03/10 for depression and anxiety. Discussed with patient option of change medication scheduled time to bedtime to avoid daytime sedation. Patient do not want any medication changes as he has been working with his attending with specific plan. He reported that he has same sleeping pattern like this at home as well. Denies safety concerns, denies hallucinations. His plan today is attended to some groups. Also advised patient to change the bed sheet. Reports he does not shower daily, denies bowel movement issues, appetite is good. Encourage patient to participate in groups. grocery worker send referral out to [facility] program. However, with the depression and anxiety, and medication management/titration, patient would be benefit for over the weekends here and then reassess to see if he is ready for treatment program early next week. He is pleasant and cooperative upon approach. Also reports to pain/and tooth abscess. We will start on antibiotic for 5 days, and topical for pain. Doxycycline 100 b.i.d. x5. Last dose will be on Wednesday 06/27. Also given Oragel for tooth pain. Motrin 600 Q 6 hours p.r.n. for pain. Plan: CV Q 15 minute checks Continue Suboxone 8/2 mg b.i.d. Continue Wellbutrin XL 450 mg Increase mirtazapine 15q.h.s. -intuniv 1mg daily; moved to bedtime if too sedating Patient educated on: diagnosis, medication risk/benefits, substance abuse and therapeutic strategies Informed Consent: understands Reason for continued inpatient stay Substantial Risk for: med/psych decompensation Time Spent With Patient Time: Total time managing care of this patient today ____ minutes.
[2025-06-22] MEDS: Benzocaine 20 % Oral Gel 9 GM TUBE 1 APPL MUCOUS MEM (15:18)
[2025-06-23 08:16] VITALS: BP 105/59; PULSE 76; TEMP 36.9; O2SAT 99
[2025-06-23] MEDS: buPROPion HCl XL 150 MG TAB.ER.24H 450 MG PO (08:54)
[2025-06-23] MEDS: guanFACINE HCl ER 1 MG TAB.ER.24H PO (08:54)
--- NOTE | 2025-06-23 10:41 | P.PNPSI_ITS ---
Subjective Subjective Date of Service: 06/23/25 Reason For Visit: Major depres, severe,recurrent, w/o psychotic feat Interim History: Pt seen, discussed with the team Quiet, isolative, withdrawn. Denies sx of concern Increased time in the milieu toward the end of the day. Denies SI,HI,AH, VH when seen. Medication Compliance: Yes Side effects from medications: No Attending Groups: No Review of Systems Acute medical concerns: No Review of Systems Review of Systems denies Mental Status Exam Mental Status Exam Patient Appearance: Appropriate Patient Orientation: Person, Place, Time and Situation Level of Consciousness: Alert Patient Behavior: Guarded, Talkative and Suspicious Mood Description: Withdrawn Affect Description: Withdrawn Patient Cognition Impaired: No Ability to Follow Directions: Good Speech Pattern: Spontaneous Speech Memory Description: Intact Hallucinations: None Delusions: Not Present Thought Process: Intact Thought Content: positive for Intact Judgement: Fair Diagnostics Vital Signs (24Hr): Vital Signs - 24 hr 06/23/25 08:16 Temperature 98.4 F Pulse Rate 76 Blood Pressure 105/59 L Pulse Oximetry 99 Oxygen Delivery Method Room Air BMI result Body Mass Index 22.4 Imaging Radiology Impressions: ITS Impressions Hand X-Ray 06/19/25 13:51 IMPRESSION: Normal left hand. Electronically signed by: Christopher Ceron MD 06/19/2025 02:12 PM EDT Medications Medications Current Medications Al Hydroxide/Mg Hydroxide (Magnesium Hydrox/Alum Hydrox 30 Ml Oral.Susp) 30 ml PO Q6H PRN PRN Reason: Heartburn/Nausea Benzocaine (Benzocaine 20 % Oral Gel 9 Gm Tube) 1 appl MUCOUS MEM QID PRN; Protocol PRN Reason: tooth pain Last Admin: 06/22/25 15:18 Dose: 1 appl Buprenorphine/Naloxone (Buprenorphine/Naloxone 8/2 Mg Film) 1 film SUBLINGUAL BID@0900,1999 [facility] Last Admin: 06/23/25 08:54 Dose: 1 film Bupropion HCl (Bupropion Hcl Xl 150 Mg Tab.Er.24h) [address] [facility] Last Admin: 06/23/25 08:54 Dose: 450 mg Clonidine HCl (Clonidine Hcl 0.1 Mg Tablet) 0.1 mg PO Q4H PRN; Protocol PRN Reason: moderate anxiety Last Admin: 06/22/25 20:49 Dose: 0.1 mg Doxycycline Monohydrate (Doxycycline Monohydrate 100 Mg Capsule) [address] [facility] Stop: 06/27/25 23:59 Last Admin: 06/23/25 08:54 Dose: 100 mg Guanfacine HCl (Guanfacine Hcl Er 1 Mg Tab.Er.24h) [address] [facility] Last Admin: 06/23/25 08:54 Dose: 1 mg Hydroxyzine HCl (Hydroxyzine Hcl 25 Mg Tablet) 25 mg PO Q6H PRN PRN Reason: mild anxiety Ibuprofen (Ibuprofen 600 Mg Tablet) 600 mg PO Q6H PRN PRN Reason: Pain, Mild (Pain Scale 1-3) Last Admin: 06/21/25 21:00 Dose: 600 mg Magnesium Hydroxide (Milk Of Magnesia 30 Ml Oral.Susp) 30 ml PO DAILY PRN PRN Reason: Constipation Mirtazapine (Mirtazapine 15 Mg Tablet) [address] [facility] Last Admin: 06/22/25 20:49 Dose: 15 mg Nicotine (Nicotine 21 Mg Patch.Td24) 21 mg TRANSDERMA DAILY PRN PRN Reason: nicotine craving Nicotine Polacrilex (Nicotine Polacrilex 2 Mg Gum) 2 mg BUCCAL Q2H PRN PRN Reason: Nicotine Cravings Olanzapine (Olanzapine 5 Mg Tablet) 5 mg PO BID PRN PRN Reason: agitation Allergies Allergies Allergy/AdvReac Type Severity Reaction Status Date / Time acetaminophen (From TYLENOL) Allergy Unknown HIVES Verified 06/18/25 19:53 amoxicillin (AMOXICILLIN) Allergy Unknown HIVES Verified 06/18/25 19:53 Assessment & Plan Assessment & Plan (1) MDD (major depressive disorder), recurrent, severe, with psychosis: Status: Acute Code(s): F33.3 - Major depressive disorder, recurrent, severe with psychotic symptoms (2) Opioid use disorder: Status: Acute Code(s): F11.90 - Opioid use, unspecified, uncomplicated (3) Cocaine use disorder: Status: Acute Code(s): F14.10 - Cocaine abuse, uncomplicated Plan Patient is a 34-year-old male with history of MDD, anxiety, opiate and cocaine use disorder who presents for worsening depression, AH in the face of being off medications, relapse and triggering event which resulted him it not being allowed to talk to his children. Patient reports that he has been off his medications for about a year since he did not follow-up when they ran out. He has been depressed and anxious 4 months, however has remained sober on Sub locade. Sublocade ran out about 2 months ago at which time he relapsed and he regrets missing follow up. Patient reports that he has been abusing heroin and cocaine daily; denies any alcohol use. His depression has continually worsened saying he's not involved in anything, depressed, not wanting to do anything....I'm tired of 'everthing...tired of waking up...damn i got to do this whole day again... 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 Since then his depression has continued to worsen and his substance abuse increased. Patient started hearing helpful auditory hallucinations which remind him of his father and grandmother and say things to tried to lift [him]... And only occur when he is depressed. Patient would like to get back on antidepressant and remembers Wellbutrin being helpful; discussed risks/side effects. Wants to get back on Sublocade and agrees to start Suboxone now. Denies any history of manic type episodes Formulation/clinical reasoning: Patient has history of depression worsened by substance abuse; AH is mood congruent and encouraging and only present when depressed. Will diagnose with MDD; patient reports Wellbutrin helped in the past and wants to restart it now; reviewed risks/side effects. Will restart patient on Suboxone. Patient already has services at a clinic for Sublocade which he says he will go to on discharge. Hospital course: 06/17 remains very depressed, sullen, keeping to self; denies AVH; denies SI; says Suboxone helping. Agrees to increase Wellbutrin -refused left hand Xray 06/18 Patient reports continued depression. Patient talked more about his history of depression said it has been most of his life and that he is typically tired all day long due to her. He does not think Suboxone in the morning has anything to do with it. He says he has tried many medications but does not really remember the names. Patient denies any SI. Discussed medication options and patient agrees to increase Wellbutrin to see if this could be effective; also patient has continued insomnia and agrees to try mirtazapine; versus side effects reviewed -also discussed behavioral activation and patient agrees to work hard to stay out of bed during the day, attend groups 06/19 Patient out of the room and in the milieu; even went to group. Patient says that he is feeling better with noticeably brighter affect. He said he also slept last night which is very uncommon forearm. Patient feels that medications are helpful and wants to continue on current regimen. Agrees that improved mood remains fragile as this is the 1st day in years that he has had relief from depression and so will monitor for now and continue with medication management as needed 06/20 Patient again lying in bed. Says he is feeling quite down again and depressed. Says this often happens that he will feel good for 1 day and then depressed again. Patient agrees however to continue to push himself to get out of bed, go to groups in order to truly assess whether not medications are working and it is just external triggers that are causing return of depressed mood. 06/21 Patient reports that overall he is starting to feel little better...he thinks. He feels it is a little too early to tell but agrees that behavioral activation and going to groups is helpful and says that is overall easier to engage with people. However given continued depression he agrees to increase mirtazapine to 15 mg. Discussed that patient has a history of ADHD symptoms; discussed Intuniv, risks/side effects and he agrees to take it daily. If he finds it sedating, he will have it switch to bedtime -increased mirtazapine 15mg -intuniv 1mg daily maybe at bed 06/22/25: Patient slept through the night, was medication compliant, appear to be sedated during daytime. cone worker and this provider met with patient this morning in his room, and was back to bed after breakfast. Reports 03/10 for depression and anxiety. Discussed with patient option of change medication scheduled time to bedtime to avoid daytime sedation. Patient do not want any medication changes as he has been working with his attending with specific plan. He reported that he has same sleeping pattern like this at home as well. Denies safety concerns, denies hallucinations. His plan today is attended to some groups. Also advised patient to change the bed sheet. Reports he does not shower daily, denies bowel movement issues, appetite is good. Encourage patient to participate in groups. cone worker send referral out to [facility] program. However, with the depression and anxiety, and medication management/titration, patient would be benefit for over the weekends here and then reassess to see if he is ready for treatment program early next week. He is pleasant and cooperative upon approach. Also reports to pain/and tooth abscess. We will start on antibiotic for 5 days, and topical for pain. Doxycycline 100 b.i.d. x5. Last dose will be on Wednesday 06/27. Also given Oragel for tooth pain. Motrin 600 Q 6 hours p.r.n. for pain. 06/23: Continue tx Plan: CV Q 15 minute checks Continue Suboxone 8/2 mg b.i.d. Continue Wellbutrin XL 450 mg Increase mirtazapine 15q.h.s. -intuniv 1mg daily; moved to bedtime if too sedating Reason for continued inpatient stay Substantial Risk for: rapid decompensation Time Spent With Patient Time: Total time managing care of this patient today ____ minutes.
[2025-06-23 20:00] VITALS: BP 103/64; PULSE 81; RESP 16; TEMP 37.1; O2SAT 98
[2025-06-23 20:45] VITALS: BP 127/61
[2025-06-24 08:15] VITALS: BP 114/67; PULSE 95; TEMP 36.6; O2SAT 99
[2025-06-24] MEDS: guanFACINE HCl ER 1 MG TAB.ER.24H PO (09:01)
[2025-06-24] MEDS: buPROPion HCl XL 150 MG TAB.ER.24H 450 MG PO (09:01)
--- NOTE | 2025-06-24 13:27 | P.PNPSI_ITS ---
Subjective Subjective Date of Service: 06/24/25 Reason For Visit: Major depres, severe,recurrent, w/o psychotic feat Interim History: Pt seen, review with the team. Resting when seen today. Reports he is well. Denies SI, HI,AH, VH Team reports no concerns today Slept 7.5 hours Depression 04/10 today. Medication Compliance: Yes Side effects from medications: No Attending Groups: No Review of Systems Acute medical concerns: No Review of Systems Review of Systems no Mental Status Exam Mental Status Exam Patient Appearance: Appropriate Patient Orientation: Person, Place, Time and Situation Level of Consciousness: Alert Patient Behavior: Talkative Mood Description: Depressed Affect Description: Withdrawn and Flat Patient Cognition Impaired: No Ability to Follow Directions: Good Speech Pattern: Spontaneous Speech Memory Description: Intact Hallucinations: None Delusions: Not Present Thought Process: Intact Thought Content: positive for Intact Judgement: Fair Diagnostics Vital Signs (24Hr): Vital Signs - 24 hr 06/23/25 20:00 06/23/25 20:45 06/24/25 08:15 Temperature 98.7 F 97.9 F Pulse Rate 81 95 Respiratory Rate 16 Blood Pressure 103/64 127/61 114/67 Pulse Oximetry 98 99 Oxygen Delivery Method Room Air BMI result Body Mass Index 22.4 Imaging Radiology Impressions: ITS Impressions Hand X-Ray 06/19/25 13:51 IMPRESSION: Normal left hand. Electronically signed by: Christopher Ceron MD 06/19/2025 02:12 PM EDT RP Medications Medications Current Medications Al Hydroxide/Mg Hydroxide (Magnesium Hydrox/Alum Hydrox 30 Ml Oral.Susp) 30 ml PO Q6H PRN PRN Reason: Heartburn/Nausea Benzocaine (Benzocaine 20 % Oral Gel 9 Gm Tube) 1 appl MUCOUS MEM QID PRN; Protocol PRN Reason: tooth pain Last Admin: 06/22/25 15:18 Dose: 1 appl Buprenorphine/Naloxone (Buprenorphine/Naloxone 8/2 Mg Film) 1 film SUBLINGUAL BID@00,1999 [facility] Last Admin: 06/24/25 09:01 Dose: 1 film Bupropion HCl (Bupropion Hcl Xl 150 Mg Tab.Er.24h) 450 mg PO DAILY [facility] Last Admin: 06/24/25 09:01 Dose: 450 mg Clonidine HCl (Clonidine Hcl 0.1 Mg Tablet) 0.1 mg PO Q4H PRN; Protocol PRN Reason: moderate anxiety Last Admin: 06/23/25 20:45 Dose: 0.1 mg Doxycycline Monohydrate (Doxycycline Monohydrate 100 Mg Capsule) 100 mg PO Q12H [facility] Stop: 06/27/25 23:59 Last Admin: 06/24/25 09:01 Dose: 100 mg Guanfacine HCl (Guanfacine Hcl Er 1 Mg Tab.Er.24h) 1 mg PO DAILY [facility] Last Admin: 06/24/25 09:01 Dose: 1 mg Hydroxyzine HCl (Hydroxyzine Hcl 25 Mg Tablet) 25 mg PO Q6H PRN PRN Reason: mild anxiety Ibuprofen (Ibuprofen 600 Mg Tablet) 600 mg PO Q6H PRN PRN Reason: Pain, Mild (Pain Scale 1-3) Last Admin: 06/21/25 21:00 Dose: 600 mg Magnesium Hydroxide (Milk Of Magnesia 30 Ml Oral.Susp) 30 ml PO DAILY PRN PRN Reason: Constipation Mirtazapine (Mirtazapine 15 Mg Tablet) 15 mg PO BEDTIME [facility] Last Admin: 06/23/25 20:44 Dose: 15 mg Nicotine (Nicotine 21 Mg Patch.Td24) 21 mg TRANSDERMA DAILY PRN PRN Reason: nicotine craving Nicotine Polacrilex (Nicotine Polacrilex 2 Mg Gum) 2 mg BUCCAL Q2H PRN PRN Reason: Nicotine Cravings Olanzapine (Olanzapine 5 Mg Tablet) 5 mg PO BID PRN PRN Reason: agitation Allergies Allergies Allergy/AdvReac Type Severity Reaction Status Date / Time acetaminophen (From TYLENOL) Allergy Unknown HIVES Verified 06/18/25 19:53 amoxicillin (AMOXICILLIN) Allergy Unknown HIVES Verified 06/18/25 19:53 Assessment & Plan Assessment & Plan (1) MDD (major depressive disorder), recurrent, severe, with psychosis: Status: Acute Code(s): F33.3 - Major depressive disorder, recurrent, severe with psychotic symptoms (2) Opioid use disorder: Status: Acute Code(s): F11.90 - Opioid use, unspecified, uncomplicated (3) Cocaine use disorder: Status: Acute Code(s): F14.10 - Cocaine abuse, uncomplicated Plan Patient is a 34-year-old male with history of MDD, anxiety, opiate and cocaine use disorder who presents for worsening depression, AH in the face of being off medications, relapse and triggering event which resulted him it not being allowed to talk to his children. Patient reports that he has been off his medications for about a year since he did not follow-up when they ran out. He has been depressed and anxious 4 months, however has remained sober on Sublocade. Sublocade ran out about 2 months ago at which time he relapsed and he regrets missing follow up. Patient reports that he has been abusing heroin and cocaine daily; denies any alcohol use. His depression has continually worsened saying he's not involved in anything, depressed, not wanting to do anything....I'm tired of 'everthing...tired of waking up...damn i got to do this whole day again... 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 Since then his depression has continued to worsen and his substance abuse increased. Patient started hearing helpful auditory hallucinations which remind him of his father and grandmother and say things to tried to lift [him]... And only occur when he is depressed. Patient would like to get back on antidepressant and remembers Wellbutrin being helpful; discussed risks/side effects. Wants to get back on Sublocade and agrees to start Suboxone now. Denies any history of manic type episodes Formulation/clinical reasoning: Patient has history of depression worsened by substance abuse; AH is mood congruent and encouraging and only present when depressed. Will diagnose with MDD; patient reports Wellbutrin helped in the past and wants to restart it now; reviewed risks/side effects. Will restart patient on Suboxone. Patient already has services at a clinic for Sublocade which he says he will go to on discharge. Hospital course: 06/17 remains very depressed, sullen, keeping to self; denies AVH; denies SI; says Suboxone helping. Agrees to increase Wellbutrin -refused left hand Xray 06/18 Patient reports continued depression. Patient talked more about his history of depression said it has been most of his life and that he is typically tired all day long due to her. He does not think Suboxone in the morning has anything to do with it. He says he has tried many medications but does not really remember the names. Patient denies any SI. Discussed medication options and patient agrees to increase Wellbutrin to see if this could be effective; also patient has continued insomnia and agrees to try mirtazapine; versus side effects reviewed -also discussed behavioral activation and patient agrees to work hard to stay out of bed during the day, attend groups 06/19 Patient out of the room and in the milieu; even went to group. Patient says that he is feeling better with noticeably brighter affect. He said he also slept last night which is very uncommon forearm. Patient feels that medications are helpful and wants to continue on current regimen. Agrees that improved mood remains fragile as this is the 1st day in years that he has had relief from depression and so will monitor for now and continue with medication management as needed 06/20 Patient again lying in bed. Says he is feeling quite down again and depressed. Says this often happens that he will feel good for 1 day and then depressed again. Patient agrees however to continue to push himself to get out of bed, go to groups in order to truly assess whether not medications are working and it is just external triggers that are causing return of depressed mood. 06/21 Patient reports that overall he is starting to feel little better...he thinks. He feels it is a little too early to tell but agrees that behavioral activation and going to groups is helpful and says that is overall easier to engage with people. However given continued depression he agrees to increase mirtazapine to 15 mg. Discussed that patient has a history of ADHD symptoms; discussed Intuniv, risks/side effects and he agrees to take it daily. If he finds it sedating, he will have it switch to bedtime -increased mirtazapine 15mg -intuniv 1mg daily maybe at bed 06/22/25: Patient slept through the night, was medication compliant, appear to be sedated during daytime. terrazzo worker apprentice and this provider met with patient this morning in his room, and was back to bed after breakfast. Reports 03/10 for depression and anxiety. Discussed with patient option of change medication scheduled time to bedtime to avoid daytime sedation. Patient do not want any medication changes as he has been working with his attending with specific plan. He reported that he has same sleeping pattern like this at home as well. Denies safety concerns, denies hallucinations. His plan today is attended to some groups. Also advised patient to change the bed sheet. Reports he does not shower daily, denies bowel movement issues, appetite is good. Encourage patient to participate in groups. terrazzo worker apprentice send referral out to [facility] program. However, with the depression and anxiety, and medication management/titration, patient would be benefit for over the weekends here and then reassess to see if he is ready for treatment program early next week. He is pleasant and cooperative upon approach. Also reports to pain/and tooth abscess. We will start on antibiotic for 5 days, and topical for pain. Doxycycline 100 b.i.d. x5. Last dose will be on Wednesday 06/27. Also given Oragel for tooth pain. Motrin 600 Q 6 hours p.r.n. for pain. 06/24: Continue tx Plan: CV Q 15 minute checks Continue Suboxone 8/2 mg b.i.d. Continue Wellbutrin XL 450 mg Increase mirtazapine 15q.h.s. -intuniv 1mg daily; moved to bedtime if too sedating Reason for continued inpatient stay Substantial Risk for: rapid decompensation Time Spent With Patient Time: Total time managing care of this patient today ____ minutes.
[2025-06-24 20:34] VITALS: BP 125/75
[2025-06-24 20:58] VITALS: BP 125/75; PULSE 101; RESP 16; TEMP 36.2; O2SAT 98
[2025-06-25 08:31] VITALS: BP 110/63; PULSE 85; TEMP 37.3; O2SAT 100
--- NOTE | 2025-06-25 09:50 | HO.PSYCHPN ---
Subjective Subjective Date of Service: 06/25/25 Reason For Visit: Major depres, severe,recurrent, w/o psychotic feat Interim History: met with patient; discussed with team pt says mood is getting better; however insomnia has returned and he's waking up frequently but does not know why says clonidine helps but does not last; seroqeul and zyprexa are not helpful. reviewed risks/side-effects and he agrees to trial of throazine Mental Status Exam Mental Status Exam Narrative: Pt is alert and oriented; behavior is often isolative but cooperative, friendly on approach; calm; patient is not in distress; dressed in casual attire, unkempt but adequate hygiene; mood is described as better and affect congruent, noticeably brighter; eye contact appropriate; Speech is normal rate, volume and prosody and not pressured; no psychomotor agitation/retardation present; thought process is organized and goal directed; Thought content is on tx; otherwise pertinent to relevant topics and without any delusional content, paranoid ideations or grandiosity; denies any SI/HI. Denies AVH and there is no evidence of perceptual disturbance. Patients insight and judgment appear intact. Diagnostics Vital Signs (24Hr): Vital Signs - 24 hr 06/24/25 20:34 06/24/25 20:58 06/25/25 08:31 Temperature 97.1 F 99.1 F Pulse Rate 101 H 85 Respiratory Rate 16 Blood Pressure 125/75 125/75 110/63 Pulse Oximetry 98 100 Oxygen Delivery Method Room Air Room Air BMI result Body Mass Index 22.4 Imaging Radiology Impressions: ITS Impressions Hand X-Ray 06/19/25 13:51 IMPRESSION: Normal left hand. Electronically signed by: Christopher Ceron MD 06/19/2025 02:12 PM EDT Medications Medications Current Medications Al Hydroxide/Mg Hydroxide (Magnesium Hydrox/Alum Hydrox 30 Ml Oral.Susp) 30 ml PO Q6H PRN PRN Reason: Heartburn/Nausea Benzocaine (Benzocaine 20 % Oral Gel 9 Gm Tube) 1 appl MUCOUS MEM QID PRN; Protocol PRN Reason: tooth pain Last Admin: 06/22/25 15:18 Dose: 1 appl Buprenorphine/Naloxone (Buprenorphine/Naloxone 8/2 Mg Film) 1 film SUBLINGUAL BID@0900,1999 [facility] Last Admin: 06/24/25 20:33 Dose: 1 film Bupropion HCl (Bupropion Hcl Xl 150 Mg Tab.Er.24h) 450 mg PO DAILY [facility] Last Admin: 06/24/25 09:01 Dose: 450 mg Clonidine HCl (Clonidine Hcl 0.1 Mg Tablet) 0.1 mg PO Q4H PRN; Protocol PRN Reason: moderate anxiety Last Admin: 06/24/25 20:34 Dose: 0.1 mg Doxycycline Monohydrate (Doxycycline Monohydrate 100 Mg Capsule) 100 mg PO Q12H [facility] Stop: 06/27/25 23:59 Last Admin: 06/24/25 20:34 Dose: 100 mg Guanfacine HCl (Guanfacine Hcl Er 1 Mg Tab.Er.24h) 1 mg PO DAILY [facility] Last Admin: 06/24/25 09:01 Dose: 1 mg Hydroxyzine HCl (Hydroxyzine Hcl 25 Mg Tablet) 25 mg PO Q6H PRN PRN Reason: mild anxiety Ibuprofen (Ibuprofen 600 Mg Tablet) 600 mg PO Q6H PRN PRN Reason: Pain, Mild (Pain Scale 1-3) Last Admin: 06/21/25 21:00 Dose: 600 mg Magnesium Hydroxide (Milk Of Magnesia 30 Ml Oral.Susp) 30 ml PO DAILY PRN PRN Reason: Constipation Mirtazapine (Mirtazapine 15 Mg Tablet) 15 mg PO BEDTIME [facility] Last Admin: 06/24/25 20:34 Dose: 15 mg Nicotine (Nicotine 21 Mg Patch.Td24) 21 mg TRANSDERMA DAILY PRN PRN Reason: nicotine craving Nicotine Polacrilex (Nicotine Polacrilex 2 Mg Gum) 2 mg BUCCAL Q2H PRN PRN Reason: Nicotine Cravings Olanzapine (Olanzapine 5 Mg Tablet) 5 mg PO BID PRN PRN Reason: agitation Allergies Allergies Allergy/AdvReac Type Severity Reaction Status Date / Time acetaminophen (From TYLENOL) Allergy Unknown HIVES Verified 06/18/25 19:53 amoxicillin (AMOXICILLIN) Allergy Unknown HIVES Verified 06/18/25 19:53 Assessment & Plan Assessment & Plan (1) MDD (major depressive disorder), recurrent, severe, with psychosis: Status: Acute Code(s): F33.3 - Major depressive disorder, recurrent, severe with psychotic symptoms (2) Opioid use disorder: Status: Acute Code(s): F11.90 - Opioid use, unspecified, uncomplicated (3) Cocaine use disorder: Status: Acute Code(s): F14.10 - Cocaine abuse, uncomplicated Plan Patient is a 34-year-old male with history of MDD, anxiety, opiate and cocaine use disorder who presents for worsening depression, AH in the face of being off medications, relapse and triggering event which resulted him it not being allowed to talk to his children. Patient reports that he has been off his medications for about a year since he did not follow-up when they ran out. He has been depressed and anxious 4 months, however has remained sober on Sublocade. Sublocade ran out about 2 months ago at which time he relapsed and he regrets missing follow up. Patient reports that he has been abusing heroin and cocaine daily; denies any alcohol use. His depression has continually worsened saying he's not involved in anything, depressed, not wanting to do anything....I'm tired of 'everthing...tired of waking up...damn i got to do this whole day again... 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 Since then his depression has continued to worsen and his substance abuse increased. Patient started hearing helpful auditory hallucinations which remind him of his father and grandmother and say things to tried to lift [him]... And only occur when he is depressed. Patient would like to get back on antidepressant and remembers Wellbutrin being helpful; discussed risks/side effects. Wants to get back on Sublocade and agrees to start Suboxone now. Denies any history of manic type episodes Formulation/clinical reasoning: Patient has history of depression worsened by substance abuse; AH is mood congruent and encouraging and only present when depressed. Will diagnose with MDD; patient reports Wellbutrin helped in the past and wants to restart it now; reviewed risks/side effects. Will restart patient on Suboxone. Patient already has services at a clinic for Sublocade which he says he will go to on discharge. Hospital course: 06/17 remains very depressed, sullen, keeping to self; denies AVH; denies SI; says Suboxone helping. Agrees to increase Wellbutrin -refused left hand Xray 06/18 Patient reports continued depression. Patient talked more about his history of depression said it has been most of his life and that he is typically tired all day long due to her. He does not think Suboxone in the morning has anything to do with it. He says he has tried many medications but does not really remember the names. Patient denies any SI. Discussed medication options and patient agrees to increase Wellbutrin to see if this could be effective; also patient has continued insomnia and agrees to try mirtazapine; versus side effects reviewed -also discussed behavioral activation and patient agrees to work hard to stay out of bed during the day, attend groups 06/19 Patient out of the room and in the milieu; even went to group. Patient says that he is feeling better with noticeably brighter affect. He said he also slept last night which is very uncommon forearm. Patient feels that medications are helpful and wants to continue on current regimen. Agrees that improved mood remains fragile as this is the 1st day in years that he has had relief from depression and so will monitor for now and continue with medication management as needed 06/20 Patient again lying in bed. Says he is feeling quite down again and depressed. Says this often happens that he will feel good for 1 day and then depressed again. Patient agrees however to continue to push himself to get out of bed, go to groups in order to truly assess whether not medications are working and it is just external triggers that are causing return of depressed mood. 06/21 Patient reports that overall he is starting to feel little better...he thinks. He feels it is a little too early to tell but agrees that behavioral activation and going to groups is helpful and says that is overall easier to engage with people. However given continued depression he agrees to increase mirtazapine to 15 mg. Discussed that patient has a history of ADHD symptoms; discussed Intuniv, risks/side effects and he agrees to take it daily. If he finds it sedating, he will have it switch to bedtime -increased mirtazapine 15mg -intuniv 1mg daily maybe at bed 06/22/25: Patient slept through the night, was medication compliant, appear to be sedated during daytime. animal shelter worker and this provider met with patient this morning in his room, and was back to bed after breakfast. Reports 03/10 for depression and anxiety. Discussed with patient option of change medication scheduled time to bedtime to avoid daytime sedation. Patient do not want any medication changes as he has been working with his attending with specific plan. He reported that he has same sleeping pattern like this at home as well. Denies safety concerns, denies hallucinations. His plan today is attended to some groups. Also advised patient to change the bed sheet. Reports he does not shower daily, denies bowel movement issues, appetite is good. Encourage patient to participate in groups. animal shelter worker send referral out to [facility]. However, with the depression and anxiety, and medication management/titration, patient would be benefit for over the weekends here and then reassess to see if he is ready for treatment program early next week. He is pleasant and cooperative upon approach. Also reports to pain/and tooth abscess. We will start on antibiotic for 5 days, and topical for pain. Doxycycline 100 b.i.d. x5. Last dose will be on Wednesday 06/27. Also given Oragel for tooth pain. Motrin 600 Q 6 hours p.r.n. for pain. 06/24: Continue tx 06/25 pt says mood is getting better; however insomnia has returned and he's waking up frequently but does not know why says clonidine helps but does not last; seroqeul and zyprexa are not helpful. reviewed risks/side-effects and he agrees to trial of throazine Plan: CV Q 15 minute checks Trial of Thorazine for sleep Continue Suboxone 8/2 mg b.i.d. Continue Wellbutrin XL 450 mg Increase mirtazapine 15q.h.s. -intuniv 1mg daily; moved to bedtime if too sedating Patient educated on: diagnosis and medication risk/benefits Informed Consent: understands Reason for continued inpatient stay Substantial Risk for: stable for discharge and med/psych decompensation Time Spent With Patient Time: Total time managing care of this patient today ____ minutes.
[2025-06-25] MEDS: buPROPion HCl XL 150 MG TAB.ER.24H 450 MG PO (09:52)
[2025-06-25] MEDS: guanFACINE HCl ER 1 MG TAB.ER.24H PO (09:53)
[2025-06-25 20:50] VITALS: BP 116/66; PULSE 85; RESP 16; TEMP 36.9; O2SAT 98
[2025-06-25 21:19] VITALS: BP 116/66
[2025-06-26 08:04] VITALS: BP 110/55; PULSE 89; TEMP 36.3; O2SAT 98
[2025-06-26] MEDS: buPROPion HCl XL 150 MG TAB.ER.24H 450 MG PO (09:27)
[2025-06-26] MEDS: guanFACINE HCl ER 1 MG TAB.ER.24H PO (09:27)
--- NOTE | 2025-06-26 09:52 | HO.PSYCHPN ---
Subjective Subjective Date of Service: 06/26/25 Reason For Visit: Major depres, severe,recurrent, w/o psychotic feat Interim History: met with patient; discussed with team Patient reports that with Thorazine it might have made him a little tired but it did not last and patient says he woke up multiple times throughout the night; does not know why and that is not to urinate. He said he forgot to get the repeat Thorazine so agrees to have it increased to 100 mg. Otherwise patient reports that his mood is definitely better. Discussed substance struggles and he wants to remain on Suboxone but does not want to attend an aftercare program and rather work out his sobriety on his own. Diagnostics Vital Signs (24Hr): Vital Signs - 24 hr 06/25/25 20:50 06/25/25 21:19 06/26/25 08:04 Temperature 98.4 F 97.3 F Pulse Rate 85 89 Respiratory Rate 16 Blood Pressure 116/66 116/66 110/55 L Pulse Oximetry 98 98 Oxygen Delivery Method Room Air Room Air BMI result Body Mass Index 22.4 Imaging Radiology Impressions: ITS Impressions Hand X-Ray 06/19/25 13:51 IMPRESSION: Normal left hand. Electronically signed by: Christopher Ceron MD 06/19/2025 02:12 PM EDT RP Medications Medications Current Medications Al Hydroxide/Mg Hydroxide (Magnesium Hydrox/Alum Hydrox 30 Ml Oral.Susp) 30 ml PO Q6H PRN PRN Reason: Heartburn/Nausea Benzocaine (Benzocaine 20 % Oral Gel 9 Gm Tube) 1 appl MUCOUS MEM QID PRN; Protocol PRN Reason: tooth pain Last Admin: 06/22/25 15:18 Dose: 1 appl Buprenorphine/Naloxone (Buprenorphine/Naloxone 8/2 Mg Film) 1 film SUBLINGUAL BID@0900,1999 [facility]PL[facility]ED [facility] Last Admin: 06/26/25 09:27 Dose: 1 film Bupropion HCl (Bupropion Hcl Xl 150 Mg Tab.Er.24h) 450 mg PO DAILY [facility]PL[facility] Last Admin: 06/26/25 09:27 Dose: 450 mg Chlorpromazine HCl (Chlorpromazine Hcl 25 Mg Tablet) 50 mg PO BEDTIME REPLACED BY [facility] Last Admin: 06/25/25 21:16 Dose: 50 mg Chlorpromazine HCl (Chlorpromazine Hcl 25 Mg Tablet) 50 mg PO BEDTIME PRN PRN Reason: continued insomnia Clonidine HCl (Clonidine Hcl 0.1 Mg Tablet) 0.1 mg PO Q4H PRN; Protocol PRN Reason: moderate anxiety Last Admin: 06/25/25 21:19 Dose: 0.1 mg Doxycycline Monohydrate (Doxycycline Monohydrate 100 Mg Capsule) 100 mg PO Q12H REPLACED BY [facility] Stop: 06/27/25 23:59 Last Admin: 06/26/25 09:24 Dose: 100 mg Guanfacine HCl (Guanfacine Hcl Er 1 Mg Tab.Er.24h) 1 mg PO DAILY [facility]PL[facility] Last Admin: 06/26/25 09:27 Dose: 1 mg Hydroxyzine HCl (Hydroxyzine Hcl 25 Mg Tablet) 25 mg PO Q6H PRN PRN Reason: mild anxiety Ibuprofen (Ibuprofen 600 Mg Tablet) 600 mg PO Q6H PRN PRN Reason: Pain, Mild (Pain Scale 1-3) Last Admin: 06/21/25 21:00 Dose: 600 mg Ibuprofen (Ibuprofen 600 Mg Tablet) 600 mg PO TIDWM REPLACED BY [facility] Stop: 06/27/25 23:00 Last Admin: 06/26/25 09:24 Dose: 600 mg Magnesium Hydroxide (Milk Of Magnesia 30 Ml Oral.Susp) 30 ml PO DAILY PRN PRN Reason: Constipation Mirtazapine (Mirtazapine 15 Mg Tablet) 15 mg PO BEDTIME REPLACED BY [facility] Last Admin: 06/25/25 21:16 Dose: 15 mg Nicotine (Nicotine 21 Mg Patch.Td24) 21 mg TRANSDERMA DAILY PRN PRN Reason: nicotine craving Nicotine Polacrilex (Nicotine Polacrilex 2 Mg Gum) 2 mg BUCCAL Q2H PRN PRN Reason: Nicotine Cravings Olanzapine (Olanzapine 5 Mg Tablet) 5 mg PO BID PRN PRN Reason: agitation Allergies Allergies Allergy/AdvReac Type Severity Reaction Status Date / Time acetaminophen (From TYLENOL) Allergy Unknown HIVES Verified 06/18/25 19:53 amoxicillin (AMOXICILLIN) Allergy Unknown HIVES Verified 06/18/25 19:53 Assessment & Plan Assessment & Plan (1) MDD (major depressive disorder), recurrent, severe, with psychosis: Status: Acute Code(s): F33.3 - Major depressive disorder, recurrent, severe with psychotic symptoms (2) Opioid use disorder: Status: Acute Code(s): F11.90 - Opioid use, unspecified, uncomplicated (3) Cocaine use disorder: Status: Acute Code(s): F14.10 - Cocaine abuse, uncomplicated Plan Patient is a 34-year-old male with history of MDD, anxiety, opiate and cocaine use disorder who presents for worsening depression, AH in the face of being off medications, relapse and triggering event which resulted him it not being allowed to talk to his children. Patient reports that he has been off his medications for about a year since he did not follow-up when they ran out. He has been depressed and anxious 4 months, however has remained sober on Sublocade. Sublocade ran out about 2 months ago at which time he relapsed and he regrets missing follow up. Patient reports that he has been abusing heroin and cocaine daily; denies any alcohol use. His depression has continually worsened saying he's not involved in anything, depressed, not wanting to do anything....I'm tired of 'everthing...tired of waking up...damn i got to do this whole day again... 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 Since then his depression has continued to worsen and his substance abuse increased. Patient started hearing helpful auditory hallucinations which remind him of his father and grandmother and say things to tried to lift [him]... And only occur when he is depressed. Patient would like to get back on antidepressant and remembers Wellbutrin being helpful; discussed risks/side effects. Wants to get back on Sublocade and agrees to start Suboxone now. Denies any history of manic type episodes Formulation/clinical reasoning: Patient has history of depression worsened by substance abuse; AH is mood congruent and encouraging and only present when depressed. Will diagnose with MDD; patient reports Wellbutrin helped in the past and wants to restart it now; reviewed risks/side effects. Will restart patient on Suboxone. Patient already has services at a clinic for Sublocade which he says he will go to on discharge. Hospital course: 06/17 remains very depressed, sullen, keeping to self; denies AVH; denies SI; says Suboxone helping. Agrees to increase Wellbutrin -refused left hand Xray 06/18 Patient reports continued depression. Patient talked more about his history of depression said it has been most of his life and that he is typically tired all day long due to her. He does not think Suboxone in the morning has anything to do with it. He says he has tried many medications but does not really remember the names. Patient denies any SI. Discussed medication options and patient agrees to increase Wellbutrin to see if this could be effective; also patient has continued insomnia and agrees to try mirtazapine; versus side effects reviewed -also discussed behavioral activation and patient agrees to work hard to stay out of bed during the day, attend groups 06/19 Patient out of the room and in the milieu; even went to group. Patient says that he is feeling better with noticeably brighter affect. He said he also slept last night which is very uncommon forearm. Patient feels that medications are helpful and wants to continue on current regimen. Agrees that improved mood remains fragile as this is the 1st day in years that he has had relief from depression and so will monitor for now and continue with medication management as needed 06/20 Patient again lying in bed. Says he is feeling quite down again and depressed. Says this often happens that he will feel good for 1 day and then depressed again. Patient agrees however to continue to push himself to get out of bed, go to groups in order to truly assess whether not medications are working and it is just external triggers that are causing return of depressed mood. 06/21 Patient reports that overall he is starting to feel little better...he thinks. He feels it is a little too early to tell but agrees that behavioral activation and going to groups is helpful and says that is overall easier to engage with people. However given continued depression he agrees to increase mirtazapine to 15 mg. Discussed that patient has a history of ADHD symptoms; discussed Intuniv, risks/side effects and he agrees to take it daily. If he finds it sedating, he will have it switch to bedtime -increased mirtazapine 15mg -intuniv 1mg daily maybe at bed 06/22/25: Patient slept through the night, was medication compliant, appear to be sedated during daytime. dry kiln worker and this provider met with patient this morning in his room, and was back to bed after breakfast. Reports 03/10 for depression and anxiety. Discussed with patient option of change medication scheduled time to bedtime to avoid daytime sedation. Patient do not want any medication changes as he has been working with his attending with specific plan. He reported that he has same sleeping pattern like this at home as well. Denies safety concerns, denies hallucinations. His plan today is attended to some groups. Also advised patient to change the bed sheet. Reports he does not shower daily, denies bowel movement issues, appetite is good. Encourage patient to participate in groups. dry kiln worker send referral out to [facility] program. However, with the depression and anxiety, and medication management/titration, patient would be benefit for over the weekends here and then reassess to see if he is ready for treatment program early next week. He is pleasant and cooperative upon approach. Also reports to pain/and tooth abscess. We will start on antibiotic for 5 days, and topical for pain. Doxycycline 100 b.i.d. x5. Last dose will be on Wednesday 06/27. Also given Oragel for tooth pain. Motrin 600 Q 6 hours p.r.n. for pain. 06/25 pt says mood is getting better; however insomnia has returned and he's waking up frequently but does not know why says clonidine helps but does not last; seroqeul and zyprexa are not helpful. reviewed risks/side-effects and he agrees to trial of throazine 06/26 Patient reports that with Thorazine it might have made him a little tired but it did not last and patient says he woke up multiple times throughout the night; does not know why and that is not to urinate. He said he forgot to get the repeat Thorazine so agrees to have it increased to 100 mg. Otherwise patient reports that his mood is definitely better. Discussed substance struggles and he wants to remain on Suboxone but does not want to attend an aftercare program and rather work out his sobriety on his own. -will continue to work with patient to help treat insomnia as ongoing lack of sleep makes patient more vulnerable to return of depression and substance abuse; however otherwise stable and will start to make aftercare plans Plan: CV Q 15 minute checks Increase Thorazine to 100 mg q.h.s. for insomnia; if does not work will consider doxepin Continue Suboxone 8/2 mg b.i.d. Continue Wellbutrin XL 450 mg Increase mirtazapine 15q.h.s. -intuniv 1mg daily; moved to bedtime if too sedating Patient educated on: diagnosis, medication risk/benefits and substance abuse Informed Consent: understands Reason for continued inpatient stay Substantial Risk for: stable for discharge Time Spent With Patient Time: Total time managing care of this patient today ____ minutes.
[2025-06-26 20:00] VITALS: BP 112/58; PULSE 97; RESP 16; TEMP 37.3; O2SAT 100
[2025-06-26 21:15] VITALS: BP 112/58
[2025-06-27] MEDS: guanFACINE HCl ER 1 MG TAB.ER.24H PO (09:27)
[2025-06-27] MEDS: buPROPion HCl XL 150 MG TAB.ER.24H 450 MG PO (09:27)
--- NOTE | 2025-06-27 10:07 | P.PNPSI_ITS ---
Subjective Subjective Date of Service: 06/27/25 Reason For Visit: Major depres, severe,recurrent, w/o psychotic feat Interim History: met with patient; discussed with team Remains with better mood but still much struggles sleeping and waking up frequently throughout the night; agrees to increasing Thorazine to 150 mg. Mental Status Exam Mental Status Exam Narrative: Pt is alert and oriented; behavior is often isolative but cooperative, friendly on approach; calm; patient is not in distress; dressed in casual attire, unkempt but adequate hygiene; mood is described as okay and affect congruent, noticeably brighter; eye contact appropriate; Speech is normal rate, volume and prosody and not pressured; no psychomotor agitation/retardation present; thought process is organized and goal directed; Thought content is on tx; otherwise pertinent to relevant topics and without any delusional content, paranoid ideations or grandiosity; denies any SI/HI. Denies AVH and there is no evidence of perceptual disturbance. Patients insight and judgment appear intact. Diagnostics Vital Signs (24Hr): Vital Signs - 24 hr 06/26/25 20:00 06/26/25 21:15 Temperature 99.1 F Pulse Rate 97 Respiratory Rate 16 Blood Pressure 112/58 L 112/58 L Pulse Oximetry 100 Oxygen Delivery Method Room Air BMI result Body Mass Index 22.4 Imaging Radiology Impressions: ITS Impressions Hand X-Ray 06/19/25 13:51 IMPRESSION: Normal left hand. Electronically signed by: Christopher Ceron MD 06/19/2025 02:12 PM EDT Medications Medications Current Medications Al Hydroxide/Mg Hydroxide (Magnesium Hydrox/Alum Hydrox 30 Ml Oral.Susp) 30 ml PO Q6H PRN PRN Reason: Heartburn/Nausea Benzocaine (Benzocaine 20 % Oral Gel 9 Gm Tube) 1 appl MUCOUS MEM QID PRN; Protocol PRN Reason: tooth pain Last Admin: 06/22/25 15:18 Dose: 1 appl Buprenorphine/Naloxone (Buprenorphine/Naloxone 8/2 Mg Film) 1 film SUBLINGUAL BID@0900,1999 [facility] Last Admin: 06/27/25 09:27 Dose: 1 film Bupropion HCl (Bupropion Hcl Xl 150 Mg Tab.Er.24h) 450 mg PO DAILY [facility] Last Admin: 06/27/25 09:27 Dose: 450 mg Chlorpromazine HCl (Chlorpromazine Hcl 25 Mg Tablet) 50 mg PO BEDTIME PRN PRN Reason: continued insomnia Chlorpromazine HCl (Chlorpromazine Hcl 100 Mg Tablet) 100 mg PO BEDTIME [facility] Last Admin: 06/26/25 21:06 Dose: 100 mg Clonidine HCl (Clonidine Hcl 0.1 Mg Tablet) 0.1 mg PO Q4H PRN; Protocol PRN Reason: moderate anxiety Last Admin: 06/26/25 21:15 Dose: 0.1 mg Doxycycline Monohydrate (Doxycycline Monohydrate 100 Mg Capsule) 100 mg PO Q12H [facility] Stop: 06/27/25 23:59 Last Admin: 06/27/25 09:27 Dose: 100 mg Guanfacine HCl (Guanfacine Hcl Er 1 Mg Tab.Er.24h) 1 mg PO DAILY [facility] Last Admin: 06/27/25 09:27 Dose: 1 mg Hydroxyzine HCl (Hydroxyzine Hcl 25 Mg Tablet) 25 mg PO Q6H PRN PRN Reason: mild anxiety Ibuprofen (Ibuprofen 600 Mg Tablet) 600 mg PO Q6H PRN PRN Reason: Pain, Mild (Pain Scale 1-3) Last Admin: 06/21/25 21:00 Dose: 600 mg Ibuprofen (Ibuprofen 600 Mg Tablet) 600 mg PO TIDWM [facility] Stop: 06/27/25 23:00 Last Admin: 06/27/25 09:27 Dose: 600 mg Magnesium Hydroxide (Milk Of Magnesia 30 Ml Oral.Susp) 30 ml PO DAILY PRN PRN Reason: Constipation Mirtazapine (Mirtazapine 15 Mg Tablet) 15 mg PO BEDTIME [facility] Last Admin: 06/26/25 21:06 Dose: 15 mg Nicotine (Nicotine 21 Mg Patch.Td24) 21 mg TRANSDERMA DAILY PRN PRN Reason: nicotine craving Nicotine Polacrilex (Nicotine Polacrilex 2 Mg Gum) 2 mg BUCCAL Q2H PRN PRN Reason: Nicotine Cravings Allergies Allergies Allergy/AdvReac Type Severity Reaction Status Date / Time acetaminophen (From TYLENOL) Allergy Unknown HIVES Verified 06/18/25 19:53 amoxicillin (AMOXICILLIN) Allergy Unknown HIVES Verified 06/18/25 19:53 Assessment & Plan Assessment & Plan (1) MDD (major depressive disorder), recurrent, severe, with psychosis: Status: Acute Code(s): F33.3 - Major depressive disorder, recurrent, severe with psychotic symptoms (2) PTSD (post-traumatic stress disorder): Status: Acute Code(s): F43.10 - Post-traumatic stress disorder, unspecified (3) Opioid use disorder: Status: Acute Code(s): F11.90 - Opioid use, unspecified, uncomplicated (4) Cocaine use disorder: Status: Acute Code(s): F14.10 - Cocaine abuse, uncomplicated Plan Patient is a 34-year-old male with history of MDD, anxiety, opiate and cocaine use disorder who presents for worsening depression, AH in the face of being off medications, relapse and triggering event which resulted him it not being allowed to talk to his children. Patient reports that he has been off his medications for about a year since he did not follow-up when they ran out. He has been depressed and anxious 4 months, however has remained sober on Sublocade. Sublocade ran out about 2 months ago at which time he relapsed and he regrets missing follow up. Patient reports that he has been abusing heroin and cocaine daily; denies any alcohol use. His depression has continually worsened saying he's not involved in anything, depressed, not wanting to do anything....I'm tired of 'everthing...tired of waking up...damn i got to do this whole day again... 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 Since then his depression has continued to worsen and his substance abuse increased. Patient started hearing helpful auditory hallucinations which remind him of his father and grandmother and say things to tried to lift [him]... And only occur when he is depressed. Patient would like to get back on antidepressant and remembers Wellbutrin being helpful; discussed risks/side effects. Wants to get back on Sublocade and agrees to start Suboxone now. Denies any history of manic type episodes Formulation/clinical reasoning: Patient has history of depression worsened by substance abuse; AH is mood congruent and encouraging and only present when depressed. Will diagnose with MDD; patient reports Wellbutrin helped in the past and wants to restart it now; reviewed risks/side effects. Will restart patient on Suboxone. Patient already has services at a clinic for Sublocade which he says he will go to on discharge. Hospital course: 06/17 remains very depressed, sullen, keeping to self; denies AVH; denies SI; says Suboxone helping. Agrees to increase Wellbutrin -refused left hand Xray 06/18 Patient reports continued depression. Patient talked more about his history of depression said it has been most of his life and that he is typically tired all day long due to her. He does not think Suboxone in the morning has anything to do with it. He says he has tried many medications but does not really remember the names. Patient denies any SI. Discussed medication options and patient agrees to increase Wellbutrin to see if this could be effective; also patient has continued insomnia and agrees to try mirtazapine; versus side effects reviewed -also discussed behavioral activation and patient agrees to work hard to stay out of bed during the day, attend groups 06/19 Patient out of the room and in the milieu; even went to group. Patient say s that he is feeling better with noticeably brighter affect. He said he also slept last night which is very uncommon forearm. Patient feels that medications are helpful and wants to continue on current regimen. Agrees that improved mood remains fragile as this is the 1st day in years that he has had relief from depression and so will monitor for now and continue with medication management as needed 06/20 Patient again lying in bed. Says he is feeling quite down again and depressed. Says this often happens that he will feel good for 1 day and then depressed again. Patient agrees however to continue to push himself to get out of bed, go to groups in order to truly assess whether not medications are working and it is just external triggers that are causing return of depressed mood. 06/21 Patient reports that overall he is starting to feel little better...he thinks. He feels it is a little too early to tell but agrees that behavioral activation and going to groups is helpful and says that is overall easier to engage with people. However given continued depression he agrees to increase mirtazapine to 15 mg. Discussed that patient has a history of ADHD symptoms; discussed Intuniv, risks/side effects and he agrees to take it daily. If he finds it sedating, he will have it switch to bedtime -increased mirtazapine 15mg -intuniv 1mg daily maybe at bed 06/22/25: Patient slept through the night, was medication compliant, appear to be sedated during daytime. horticultural farmworker and this provider met with patient this morning in his room, and was back to bed after breakfast. Reports 03/10 for depression and anxiety. Discussed with patient option of change medication scheduled time to bedtime to avoid daytime sedation. Patient do not want any medication changes as he has been working with his attending with specific plan. He reported that he has same sleeping pattern like this at home as well. Denies safety concerns, denies hallucinations. His plan today is attended to some groups. Also advised patient to change the bed sheet. Reports he does not shower daily, denies bowel movement issues, appetite is good. Encourage patient to participate in groups. horticultural farmworker send referral out to [facility] program. However, with the depression and anxiety, and medication management/titration, patient would be benefit for over the weekends here and then reassess to see if he is ready for treatment program early next week. He is pleasant and cooperative upon approach. Also reports to pain/and tooth abscess. We will start on antibiotic for 5 days, and topical for pain. Doxycycline 100 b.i.d. x5. Last dose will be on Wednesday 06/27. Also given Oragel for tooth pain. Motrin 600 Q 6 hours p.r.n. for pain. 06/25 pt says mood is getting better; however insomnia has returned and he's waking up frequently but does not know why says clonidine helps but does not last; seroqeul and zyprexa are not helpful. reviewed risks/side-effects and he agrees to trial of throazine 06/26 Patient reports that with Thorazine it might have made him a little tired but it did not last and patient says he woke up multiple times throughout the night; does not know why and that is not to urinate. He said he forgot to get the repeat Thorazine so agrees to have it increased to 100 mg. Otherwise patient reports that his mood is definitely better. Discussed substance struggles and he wants to remain on Suboxone but does not want to attend an aftercare program and rather work out his sobriety on his own. -will continue to work with patient to help treat insomnia as ongoing lack of sleep makes patient more vulnerable to return of depression and substance abuse; however otherwise stable and will start to make aftercare plans 06/27 increasing Thorazine for continued insomnia Plan: CV Q 15 minute checks Increase Thorazine to 150 mg q.h.s. for insomnia; if does not work will consider doxepin Continue Suboxone 8/2 mg b.i.d. Continue Wellbutrin XL 450 mg Increase mirtazapine 15q.h.s. -intuniv 1mg daily; moved to bedtime if too sedating Reviewed risks/side effects of antipsychotic medications/Thorazine which patient understands and agrees to take Patient educated on: diagnosis and medication risk/benefits Informed Consent: understands Reason for continued inpatient stay Substantial Risk for: stable for discharge and med/psych decompensation Time Spent With Patient Time: Total time managing care of this patient today ____ minutes.
--- NOTE | 2025-06-27 12:59 | PC.NURSE ---
Juan Manuel signed a 3 Day Notice. Team notified.
[2025-06-27 21:09] VITALS: BP 126/75
[2025-06-28 00:27] VITALS: BP 126/75; PULSE 95; RESP 16; TEMP 37.5; O2SAT 98
[2025-06-28 08:00] VITALS: RESP 18
--- NOTE | 2025-06-28 08:18 | PC.NURSE ---
Received a Comprehensive Care consult from provider and met with him to provide addiction recovery support. Upon approach Juan Manuel was alert, oriented, receptive and engaged in the conversation. Previous to encounter his RN had contacted to ask for recovery literature related to group and 12 step therapy. Discussed background and future plans with Juan Manuel. He shared that he was interested in returning to AA which he has attended in the past and that he wanted to resume Sublocade injections. Provided Juan Manuel with a recovery related book to read and returned to provide an updated [facility] AA schedule as he will not have electronic access to the schedule for a few days. Juan Manuel said that he would attempt to resume Sublocade at the [facility] that he had been to in the past. Juan Manuel declined the offer for a project coach as he said that he was not interested in the group that offered the service (will check into additional organizations that provide service and alert social work) and was given [facility] contact information as a back-up clinic for injection and to call for outpatient recovery resources if he needed any help once discharged.?
[2025-06-28] MEDS: guanFACINE HCl ER 1 MG TAB.ER.24H PO (08:31)
[2025-06-28] MEDS: buPROPion HCl XL 150 MG TAB.ER.24H 450 MG PO (08:31)
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
[2025-06-28 20:08] VITALS: BP 130/81; PULSE 108; RESP 16; TEMP 36.8; O2SAT 99
[2025-06-28 20:45] VITALS: BP 130/81
--- NOTE | 2025-06-28 21:19 | PC.NURSE ---
Patient is prescribed Doxepin 6mg at 2100 hours. TW took Doxepin as dispensed by the [facility]. When attempting to administer the medication, it turned out that the medication is in the form of 10mg capsule. There was no way for the nurse to obtain an accurate dose of 6mg. call box wirer provider Katie Huston was contacted via [place] text for order verification. She contacted the pharmacy, and they stated that they have Doxepin in 10mg and 25mg dosages. She ordered the evening medication to be held, and for the dosage info to be passed on to Team meeting for review.
[2025-06-29 08:00] VITALS: BP 108/70; PULSE 83; TEMP 36.6; O2SAT 100
[2025-06-29] MEDS: buPROPion HCl XL 150 MG TAB.ER.24H 450 MG PO (08:47)
[2025-06-29] MEDS: guanFACINE HCl ER 1 MG TAB.ER.24H PO (08:48)
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
[2025-06-29] MEDS: Naloxone HCl Nasal TAKE HOME 4 MG SPRAY 8 MG NOSTRILALT (10:48)
== END 2025-06-29 11:24 | disposition home or self-care (01) | DRG 751 ==
PROVIDERS: Admitting Provider Psychiatry & Neurology Psychiatry; Visit Provider Psychiatry & Neurology Psychiatry
DX: F33.2 Major depressive disorder, recurrent severe without psychotic features (principal); Z91.148 Patient's other noncompliance with medication regimen for other reason; F11.20 Opioid dependence, uncomplicated; F14.10 Cocaine abuse, uncomplicated; F17.210 Nicotine dependence, cigarettes, uncomplicated; Z71.6 Tobacco abuse counseling; F43.10 Post-traumatic stress disorder, unspecified; Z79.899 Other long term (current) drug therapy
CPT/HCPCS: 73130

== ENCOUNTER 2025-06-15 18:56 | Outpatient (BNV) | payer OTHER, SELFPAY | END 2025-06-19 13:51 | PROVIDERS: Admitting Provider Psychiatry & Neurology Psychiatry; Visit Provider Radiology Diagnostic Radiology | DX: M25.532 Pain in left wrist (principal) | CPT/HCPCS: 73130 ==

== ENCOUNTER → 2025-06-15 18:56 | Outpatient (BNV) | payer OTHER, SELFPAY | PROVIDERS: Admitting Provider Psychiatry & Neurology Psychiatry; Visit Provider Student in an Organized Health Care Education/Training Program | DX: Z00.8 Encounter for other general examination (principal) | CPT/HCPCS: 99223 ==

== ENCOUNTER → 2025-06-15 18:56 | Outpatient (BNV) | payer OTHER, SELFPAY | PROVIDERS: Admitting Provider Psychiatry & Neurology Psychiatry; Visit Provider Psychiatry & Neurology Psychiatry | DX: F33.3 Major depressive disorder, recurrent, severe with psychotic symptoms (principal); F14.10 Cocaine abuse, uncomplicated; F11.90 Opioid use, unspecified, uncomplicated | CPT/HCPCS: 99231; 99232 ==

== ENCOUNTER 2025-09-12 17:02 | Inpatient (IN) | payer OTHER, SELFPAY ==
[2025-09-12 17:19] VITALS: BMI 22.8
[2025-09-12 17:23] VITALS: BP 137/82; PULSE 88; RESP 16; TEMP 36.6; O2SAT 99
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
--- NOTE | 2025-09-13 06:32 | PM.EVENT ---
Event Note Date of Service: 09/13/25 Event Note: Hospitalist consult placed for admission H&P, patient declined consult. Discussed the importance of reviewing medical history and medications as well as any acute medical concerns. Patient denies any acute medical concerns at this time, states he will alert us if any changes. Thank you for allowing me to participate in the pt's care. Signing off. Please contact the medical team if any questions or concerns. Time Spent With Patient Time: Total time managing care of this patient today ____ minutes.
[2025-09-13 08:00] VITALS: BP 112/68; PULSE 85; RESP 16; TEMP 36.9; O2SAT 98
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
[2025-09-13] MEDS: buPROPion HCl XL 150 MG TAB.ER.24H PO (13:42)
--- NOTE | 2025-09-13 13:50 | PC.NURSE ---
Pt signed 3 day notice up on Tuesday 09/18. , ALEX, UR aware.
[2025-09-13 20:00] VITALS: BP 119/72; PULSE 88; TEMP 37.4; O2SAT 99
[2025-09-14 08:36] VITALS: BP 116/64; PULSE 84; TEMP 36.5; O2SAT 98
[2025-09-14] MEDS: buPROPion HCl XL 150 MG TAB.ER.24H PO (09:36)
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
--- NOTE | 2025-09-14 17:08 | MHC.RECOVRN ---
Consult received by Addiction Medicine for pt with OUD & cocaine use, recently initiated on buprenorphine. TW attempted to meet with pt to discuss recovery support, resources, and options. On approach pt was guarded, withdrawn, and stated, I'm not feeling well. I don't want to talk right now Tw explained that if his symptoms were related to withdrawal, would be able to help. Pt responded, They're not, I'm tired . No restlessness, diaphoresis or acute distress noted. ACS team will attempt to revisit pt tomorrow and is available as needed.
[2025-09-14 20:00] VITALS: BP 127/69; PULSE 75; RESP 18; TEMP 36.5; O2SAT 99
[2025-09-15 08:30] VITALS: BP 96/58; PULSE 73; TEMP 36.6; O2SAT 100
[2025-09-15] MEDS: buPROPion HCl XL 300 MG TAB.ER.24H PO (09:13)
[2025-09-15] MEDS: guanFACINE HCl ER 1 MG TAB.ER.24H PO (09:13)
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
[2025-09-15 20:00] VITALS: BP 137/82; PULSE 83; RESP 18; TEMP 36.4; O2SAT 98
[2025-09-15 22:07] VITALS: BP 137/82
[2025-09-16 08:00] VITALS: BP 97/57; PULSE 70; RESP 18; TEMP 36.4; O2SAT 98
[2025-09-16 08:43] VITALS: BP 129/77; PULSE 66
[2025-09-16] MEDS: buPROPion HCl XL 300 MG TAB.ER.24H PO (08:45)
[2025-09-16] MEDS: guanFACINE HCl ER 1 MG TAB.ER.24H PO (08:45)
[2025-09-16 20:00] VITALS: BP 116/67; PULSE 85; TEMP 36.9; O2SAT 98
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
[2025-09-17 08:15] VITALS: BP 107/57; PULSE 67; TEMP 35.5; O2SAT 97
[2025-09-17] MEDS: guanFACINE HCl ER 1 MG TAB.ER.24H PO (09:00)
[2025-09-17] MEDS: buPROPion HCl XL 300 MG TAB.ER.24H PO (09:00)
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
[2025-09-17 20:00] VITALS: BP 117/67; PULSE 75; RESP 18; TEMP 37.7; O2SAT 97
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
[2025-09-18 08:45] VITALS: BP 102/59; PULSE 81; RESP 16; TEMP 36.8; O2SAT 99
[2025-09-18] MEDS: guanFACINE HCl ER 1 MG TAB.ER.24H PO (08:54)
[2025-09-18] MEDS: buPROPion HCl XL 300 MG TAB.ER.24H PO (08:54)
[2025-09-18] MEDS: Naloxone HCl Nasal TAKE HOME 4 MG SPRAY 8 MG NOSTRILALT (08:57)
== END 2025-09-18 11:23 | disposition home or self-care (01) | DRG 751 ==
PROVIDERS: Admitting Provider Psychiatry & Neurology Psychiatry; PCP Internal Medicine; Visit Provider Psychiatry & Neurology Psychiatry
DX: F33.2 Major depressive disorder, recurrent severe without psychotic features (principal); R45.851 Suicidal ideations; F11.20 Opioid dependence, uncomplicated; F17.210 Nicotine dependence, cigarettes, uncomplicated; Z71.6 Tobacco abuse counseling; F43.10 Post-traumatic stress disorder, unspecified; Z79.899 Other long term (current) drug therapy

== ENCOUNTER → 2025-09-12 17:02 | Outpatient (BNV) | payer OTHER, SELFPAY | PROVIDERS: Admitting Provider Psychiatry & Neurology Psychiatry; PCP Internal Medicine; Visit Provider Nurse Practitioner Family | DX: F33.2 Major depressive disorder, recurrent severe without psychotic features (principal); F43.11 Post-traumatic stress disorder, acute; F11.90 Opioid use, unspecified, uncomplicated; R45.851 Suicidal ideations | CPT/HCPCS: 99232 ==